=== PATIENT | female | born 1990 | race Caucasian/White ===

== ENCOUNTER 2018-02-03 09:50 | Emergency (ER) | payer OTHER ==
[~2018-02-03] VITALS: Ht 165.1 cm; Wt 82.5 kg
[~2018-02-03 09:50] MED LIST: ESCI10; ESCI20; LANS30PKT
[2018-02-03 10:57] LABS: Source, Urine Clean Catch
[2018-02-03 11:01] LABS: BASOPHILS ABSOLUTE AUTO 0.04 K/mm3 (0.00-0.23); BASOPHILS PERCENT AUTO 0 % (0-2); EOSINOPHILS ABSOLUTE AUTO 0.08 K/mm3 (0.00-0.68); EOSINOPHILS PERCENT AUTO 1 % (0-6); Hematocrit 43.1 % (33.0-51.0); Hemoglobin 14.7 g/dL (11.5-16.0); IMMATURE GRAN ABSOLUTE AUTO 0.06 K/mm3 (0.00-0.10); IMMATURE GRAN PERCENT AUTO 0 % (0-1); LYMPHOCYTES ABSOLUTE AUTO 1.72 K/mm3 (0.84-5.20); LYMPHOCYTES PERCENT AUTO 12 % (21-46); MONOCYTES ABSOLUTE AUTO 1.13 K/mm3 (0.16-1.47); MONOCYTES PERCENT AUTO 8 % (4-13); Mean Corpuscular HGB 28.8 pg (26.0-34.0); Mean Corpuscular HGB Conc 34.1 g/dL (31.5-36.5); Mean Corpuscular Volume 85 fL (80-100); Mean Platelet Volume 10.5 fL (9.1-12.4); NEUTROPHILS ABSOLUTE AUTO 10.84 K/mm3 (1.96-9.15); NEUTROPHILS PERCENT AUTO 78 % (41-73); Platelet Count 180 K/mm3 (150-400); RDW Coefficient Variation 12.5 % (11.7-14.2); RDW Standard Deviation 38.5 fL (35.1-46.3); White Blood Cell Count 13.87 K/mm3 (4.00-11.30)
[2018-02-03 11:02] LABS: Bilirubin, Urine Neg (Neg); Blood, Urine 1+ (Neg); Glucose Qualitative, Urine Neg (Neg); Ketones, Urine Neg (Neg); Leukocyte Esterase, Urine 1+ (Neg); Nitrite, Urine Pos (Neg); Protein, Urine Neg (Neg); Specific Gravity, Urine 1.015 (1.003-1.022); Urobilinogen, Urine NORM (Normal); pH, Urine 6.5 (5.0-8.0)
[2018-02-03 11:07] LABS: Appearance, Urine Hazy (Clear); Color, Urine Yellow (P-Yellow)
[2018-02-03 11:09] LABS: Bacteria Mod /hpf; Mucus Mod (0-Heavy); Red Blood Cells, Urine Not Seen /hpf (0-2); Squamous Epithelial Cells Mod /hpf (Few)
[2018-02-03 11:22] LABS: Alanine Aminotransfer (ALT/SGP 19 U/L (12-78); Albumin, Blood 3.7 g/dL (3.4-5.0); Albumin/Globulin Ratio 0.9 (0.8-1.8); Alk Phos 96 U/L (50-136); Anion Gap 8 mmol/L (6-16); Aspartate Aminotrans (AST/SGOT 8 U/L (12-37); Bilirubin, Total 0.6 mg/dL (0.1-1.0); Blood Urea Nitrogen 16 mg/dL (8-24); Bun/Creatinine Ratio 24.1 (12.0-20.0); CO2, Blood 25 mmol/L (21-32); Calcium, Blood 9.2 mg/dL (8.5-10.1); Chloride, Blood 106 mmol/L (98-108); Creatinine, Blood 0.66 mg/dL (0.40-1.00); Globulin, Blood 4.2 g/dL (2.2-4.0); Glomerular Filtration Rate >60 (60-); Glucose, Blood 86 mg/dL (70-99); Potassium, Blood 3.9 mmol/L (3.5-5.5); Sodium, Blood 139 mmol/L (136-145); Total Protein, Blood 7.9 g/dL (6.4-8.2)
[2018-02-03 11:26] LABS: U Amphetamine Screen DETECTED; U Barbituate Screen Not Detected; U Benzodiazapine Screen Not Detected; U Buprenorphine Screen Not Detected; U Cannabinoids Screen Not Detected; U Cocaine Screen Not Detected; U Methadone Screen Not Detected; U Methamphetamine Screen DETECTED; U Opiates Screen Not Detected; U Oxycodone Screen Not Detected; U Phencyclidine Screen Not Detected
[2018-02-03 11:27] LABS: U Propoxyphene Screen Not Detected
[2018-02-03] MEDS ORDERED: Norco 5-325 Ta1 EACH PO (14:08)
[2018-02-03] MEDS ORDERED: Cleocin HCl300 MG PO (14:08)
[2018-02-03] MEDS ORDERED: Bactrim Ds Tab1 EACH PO (14:08)
== END 2018-02-03 14:18 | disposition home or self-care (01) ==
LOC: ER 09:50
PROVIDERS: Emergency Medicine
DX: L02.211 Cutaneous abscess of abdominal wall (principal); K21.9 Gastro-esophageal reflux disease without esophagitis; F32.9 Major depressive disorder, single episode, unspecified; Z88.0 Allergy status to penicillin; Z88.6 Allergy status to analgesic agent; Z79.899 Other long term (current) drug therapy
CPT/HCPCS: 10060; 36415; 74160; 80053; 81001; 81025; 83690; 85025; 87070; 87075; 87077; 87086; 87147; 87186; 87205; 96374; 96375; 99284; J0780; J1170; J1200; J2405; Q9967

== ENCOUNTER 2018-02-06 12:41 | Emergency (ER) | payer OTHER ==
[~2018-02-06] VITALS: Ht 165.1 cm; Wt 82.5 kg
[~2018-02-06 12:41] MED LIST changes: +Bactrim Ds Tab1 EACH PO; +Cleocin HCl300 MG PO; +Norco 5-325 Ta1 EACH PO
== END 2018-02-06 13:46 | disposition home or self-care (01) ==
LOC: ER 12:41
DX: Z48.817 Encounter for surgical aftercare following surgery on the skin and subcutaneous tissue (principal); Z88.0 Allergy status to penicillin; Z88.6 Allergy status to analgesic agent; F17.210 Nicotine dependence, cigarettes, uncomplicated
CPT/HCPCS: 99282

== ENCOUNTER 2018-02-25 09:27 | Emergency (ER) | payer OTHER ==
[~2018-02-25] VITALS: Ht 167.6 cm; Wt 78.5 kg
[2018-02-25] MEDS ORDERED: HYDR1TAB94 PO (10:37)
[2018-02-25] MEDS ORDERED: IBUP800 PO (10:37)
== END 2018-02-25 11:00 | disposition home or self-care (01) ==
LOC: ER 09:27
DX: S93.402A Sprain of unspecified ligament of left ankle, initial encounter (principal); F17.210 Nicotine dependence, cigarettes, uncomplicated; Z88.0 Allergy status to penicillin; Z88.6 Allergy status to analgesic agent; Z88.8 Allergy status to other drugs, medicaments and biological substances; Z79.899 Other long term (current) drug therapy; Z79.2 Long term (current) use of antibiotics; X50.1XXA Overexertion from prolonged static or awkward postures, initial encounter; Y93.02 Activity, running; Y92.828 Other wilderness area as the place of occurrence of the external cause
CPT/HCPCS: 73610; 99283

== ENCOUNTER 2018-05-09 22:00 | Emergency (ER) | payer OTHER ==
[~2018-05-09] VITALS: Ht 165.1 cm; Wt 83.5 kg
[~2018-05-09 22:00] MED LIST changes: +HYDR1TAB94 PO; +IBUP800 PO
[2018-05-09 23:13] LABS: BASOPHILS ABSOLUTE AUTO 0.08 K/mm3 (0.00-0.23); BASOPHILS PERCENT AUTO 1 % (0-2); EOSINOPHILS ABSOLUTE AUTO 0.26 K/mm3 (0.00-0.68); EOSINOPHILS PERCENT AUTO 3 % (0-6); Hematocrit 42.9 % (33.0-51.0); Hemoglobin 14.5 g/dL (11.5-16.0); IMMATURE GRAN ABSOLUTE AUTO 0.02 K/mm3 (0.00-0.10); IMMATURE GRAN PERCENT AUTO 0 % (0-1); LYMPHOCYTES ABSOLUTE AUTO 3.83 K/mm3 (0.84-5.20); LYMPHOCYTES PERCENT AUTO 39 % (21-46); MONOCYTES ABSOLUTE AUTO 0.81 K/mm3 (0.16-1.47); MONOCYTES PERCENT AUTO 8 % (4-13); Mean Corpuscular HGB 29.7 pg (26.0-34.0); Mean Corpuscular HGB Conc 33.8 g/dL (31.5-36.5); Mean Corpuscular Volume 88 fL (80-100); Mean Platelet Volume 10.5 fL (9.1-12.4); NEUTROPHILS ABSOLUTE AUTO 4.88 K/mm3 (1.96-9.15); NEUTROPHILS PERCENT AUTO 49 % (41-73); Platelet Count 190 K/mm3 (150-400); RDW Coefficient Variation 12.2 % (11.7-14.2); RDW Standard Deviation 39.2 fL (35.1-46.3); Red Blood Cell Count 4.89 M/mm3 (3.80-5.20); White Blood Cell Count 9.88 K/mm3 (4.00-11.30)
[2018-05-09 23:38] LABS: Troponin I <0.015 ng/mL (0.000-0.040)
[2018-05-09 23:39] LABS: Alanine Aminotransfer (ALT/SGP 31 U/L (12-78); Albumin, Blood 3.4 g/dL (3.4-5.0); Alk Phos 107 U/L (50-136); Anion Gap 7 mmol/L (6-16); Aspartate Aminotrans (AST/SGOT 12 U/L (12-37); Bilirubin, Total 0.1 mg/dL (0.1-1.0); Blood Urea Nitrogen 12 mg/dL (8-24); Bun/Creatinine Ratio 19.7 (12.0-20.0); CO2, Blood 26 mmol/L (21-32); Calcium, Blood 8.7 mg/dL (8.5-10.1); Chloride, Blood 110 mmol/L (98-108); Creatinine, Blood 0.61 mg/dL (0.40-1.00); Globulin, Blood 3.4 g/dL (2.2-4.0); Glomerular Filtration Rate >60 (60-); Glucose, Blood 93 mg/dL (70-99); Potassium, Blood 3.5 mmol/L (3.5-5.5); Sodium, Blood 143 mmol/L (136-145); Total Protein, Blood 6.8 g/dL (6.4-8.2)
== END 2018-05-10 01:24 | disposition home or self-care (01) ==
LOC: ER 22:00
PROVIDERS: Physician Assistant
DX: R07.9 Chest pain, unspecified (principal); Z88.0 Allergy status to penicillin; Z88.5 Allergy status to narcotic agent; Z88.8 Allergy status to other drugs, medicaments and biological substances; F17.200 Nicotine dependence, unspecified, uncomplicated
CPT/HCPCS: 36415; 71046; 80053; 81000; 81025; 84484; 85025; 93005; 93010; 96374; 96375; 99283; J1200; J2405

== ENCOUNTER 2018-05-31 19:00 | Emergency (ER) | payer OTHER ==
[~2018-05-31] VITALS: Ht 165.1 cm; Wt 84.8 kg
[2018-05-31] MEDS ORDERED: TRAM50 PO (19:18)
[2018-05-31] MEDS ORDERED: CLIN300 PO (19:18)
== END 2018-05-31 19:41 | disposition home or self-care (01) ==
LOC: ER 19:00
DX: K02.9 Dental caries, unspecified (principal); Z88.0 Allergy status to penicillin; Z88.8 Allergy status to other drugs, medicaments and biological substances; Z88.5 Allergy status to narcotic agent; Z79.2 Long term (current) use of antibiotics; Z79.891 Long term (current) use of opiate analgesic; F17.210 Nicotine dependence, cigarettes, uncomplicated
CPT/HCPCS: 99283

== ENCOUNTER 2018-06-09 13:21 | Emergency (ER) | payer OTHER ==
[~2018-06-09] VITALS: Ht 167.6 cm; Wt 86.2 kg
[~2018-06-09 13:21] MED LIST changes: +CLIN300 PO; +TRAM50 PO
[2018-06-09] MEDS ORDERED: Cyclobenzaprine5 MG PO (14:39)
== END 2018-06-09 15:45 | disposition home or self-care (01) ==
LOC: ER 13:21
DX: S39.012A Strain of muscle, fascia and tendon of lower back, initial encounter (principal); F17.210 Nicotine dependence, cigarettes, uncomplicated; Z88.0 Allergy status to penicillin; Z88.6 Allergy status to analgesic agent; Z88.8 Allergy status to other drugs, medicaments and biological substances; X58.XXXA Exposure to other specified factors, initial encounter
CPT/HCPCS: 72070; 72100

== ENCOUNTER 2019-06-23 20:55 | Emergency (ER) | payer OTHER ==
[~2019-06-23] VITALS: Ht 167.6 cm; Wt 84.8 kg
[~2019-06-23 20:55] MED LIST changes: +Cyclobenzaprine5 MG PO
[2019-06-23 21:50] LABS: BASOPHILS ABSOLUTE AUTO 0.06 K/mm3 (0.00-0.23); BASOPHILS PERCENT AUTO 1 % (0-2); EOSINOPHILS ABSOLUTE AUTO 0.24 K/mm3 (0.00-0.68); EOSINOPHILS PERCENT AUTO 3 % (0-6); Hematocrit 47.3 % (33.0-51.0); Hemoglobin 16.1 g/dL (11.5-16.0); IMMATURE GRAN ABSOLUTE AUTO 0.03 K/mm3 (0.00-0.10); IMMATURE GRAN PERCENT AUTO 0 % (0-1); LYMPHOCYTES ABSOLUTE AUTO 2.81 K/mm3 (0.84-5.20); LYMPHOCYTES PERCENT AUTO 29 % (21-46); MONOCYTES ABSOLUTE AUTO 0.77 K/mm3 (0.16-1.47); MONOCYTES PERCENT AUTO 8 % (4-13); Mean Corpuscular HGB 29.4 pg (26.0-34.0); Mean Corpuscular Volume 86 fL (80-100); Mean Platelet Volume 11.5 fL (9.1-12.4); NEUTROPHILS PERCENT AUTO 59 % (41-73); Platelet Count 173 K/mm3 (150-400); RDW Standard Deviation 40.1 fL (35.1-46.3); Red Blood Cell Count 5.48 M/mm3 (3.80-5.20); White Blood Cell Count 9.61 K/mm3 (4.00-11.30)
[2019-06-23 23:09] LABS: Alanine Aminotransfer (ALT/SGP 23 U/L (12-78); Albumin, Blood 3.5 g/dL (3.4-5.0); Albumin/Globulin Ratio 0.9 (0.8-1.8); Alk Phos 121 U/L (50-136); Anion Gap 7 mmol/L (6-16); Aspartate Aminotrans (AST/SGOT 10 U/L (12-37); Bilirubin, Total 0.2 mg/dL (0.1-1.0); Blood Urea Nitrogen 12 mg/dL (8-24); Bun/Creatinine Ratio 17.4 (12.0-20.0); CO2, Blood 28 mmol/L (21-32); Calcium, Blood 8.8 mg/dL (8.5-10.1); Chloride, Blood 108 mmol/L (98-108); Creatinine, Blood 0.69 mg/dL (0.40-1.00); Glomerular Filtration Rate >60 (60-); Glucose, Blood 87 mg/dL (70-99); Potassium, Blood 3.7 mmol/L (3.5-5.5); Sodium, Blood 143 mmol/L (136-145); Total Protein, Blood 7.5 g/dL (6.4-8.2)
[2019-06-24] MEDS ORDERED: Bactrim Ds Tab1 EACH PO ×2 (02:04→02:05)
[2019-06-24] MEDS ORDERED: IBUP800 PO ×2 (02:04→02:05)
== END 2019-06-24 02:31 | disposition home or self-care (01) ==
LOC: ER 20:55
PROVIDERS: Physician Assistant
DX: H05.011 Cellulitis of right orbit (principal); Z88.0 Allergy status to penicillin; Z88.6 Allergy status to analgesic agent; Z88.8 Allergy status to other drugs, medicaments and biological substances; F17.210 Nicotine dependence, cigarettes, uncomplicated
CPT/HCPCS: 10060; 36415; 70487; 80053; 85025; 96365-59; 99283-25; A9270; Q9967

== ENCOUNTER 2019-08-25 14:05 | Emergency (ER) | payer OTHER ==
[~2019-08-25] VITALS: Ht 167.6 cm; Wt 82.5 kg
[2019-08-25 15:24] LABS: BASOPHILS ABSOLUTE AUTO 0.05 K/mm3 (0.00-0.23); BASOPHILS PERCENT AUTO 1 % (0-2); EOSINOPHILS ABSOLUTE AUTO 0.21 K/mm3 (0.00-0.68); EOSINOPHILS PERCENT AUTO 2 % (0-6); Hematocrit 42.4 % (33.0-51.0); Hemoglobin 14.6 g/dL (11.5-16.0); IMMATURE GRAN ABSOLUTE AUTO 0.02 K/mm3 (0.00-0.10); IMMATURE GRAN PERCENT AUTO 0 % (0-1); LYMPHOCYTES ABSOLUTE AUTO 2.19 K/mm3 (0.84-5.20); LYMPHOCYTES PERCENT AUTO 23 % (21-46); MONOCYTES ABSOLUTE AUTO 0.82 K/mm3 (0.16-1.47); MONOCYTES PERCENT AUTO 9 % (4-13); Mean Corpuscular HGB 29.4 pg (26.0-34.0); Mean Corpuscular HGB Conc 34.4 g/dL (31.5-36.5); Mean Corpuscular Volume 85 fL (80-100); Mean Platelet Volume 9.9 fL (9.1-12.4); NEUTROPHILS ABSOLUTE AUTO 6.22 K/mm3 (1.96-9.15); NEUTROPHILS PERCENT AUTO 66 % (41-73); Platelet Count 227 K/mm3 (150-400); RDW Coefficient Variation 12.4 % (11.7-14.2); RDW Standard Deviation 38.4 fL (35.1-46.3); Red Blood Cell Count 4.97 M/mm3 (3.80-5.20); White Blood Cell Count 9.51 K/mm3 (4.00-11.30)
[2019-08-25 16:25] LABS: Alanine Aminotransfer (ALT/SGP 37 U/L (12-78); Albumin, Blood 3.3 g/dL (3.4-5.0); Albumin/Globulin Ratio 0.9 (0.8-1.8); Alk Phos 124 U/L (50-136); Anion Gap 5 mmol/L (6-16); Aspartate Aminotrans (AST/SGOT 23 U/L (12-37); Bilirubin, Total 0.1 mg/dL (0.1-1.0); Blood Urea Nitrogen 15 mg/dL (8-24); Bun/Creatinine Ratio 22.2 (12.0-20.0); CO2, Blood 23 mmol/L (21-32); Chloride, Blood 111 mmol/L (98-108); Creatinine, Blood 0.68 mg/dL (0.40-1.00); Globulin, Blood 3.8 g/dL (2.2-4.0); Glomerular Filtration Rate >60 (60-); Glucose, Blood 107 mg/dL (70-99); Potassium, Blood 4.1 mmol/L (3.5-5.5); Sodium, Blood 139 mmol/L (136-145); Total Protein, Blood 7.1 g/dL (6.4-8.2)
[2019-08-25] MEDS ORDERED: CLIN300 PO (16:48)
[2019-08-25] MEDS ORDERED: Roxicodone5 MG PO (16:48)
[2019-08-25] MEDS ORDERED: Bactrim Ds Tab1 EACH PO (16:51)
== END 2019-08-25 17:31 | disposition home or self-care (01) ==
LOC: ER 14:05
PROVIDERS: Physician Assistant
DX: L03.213 Periorbital cellulitis (principal); H44.002 Unspecified purulent endophthalmitis, left eye; F17.210 Nicotine dependence, cigarettes, uncomplicated; Z88.0 Allergy status to penicillin; Z88.8 Allergy status to other drugs, medicaments and biological substances; Z88.5 Allergy status to narcotic agent
CPT/HCPCS: 67700; 70487; 80053; 85025; 96365-59; 99284-25; A9270-GY; J3010; Q9967

== ENCOUNTER 2019-11-18 09:52 | Emergency (ER) | payer OTHER ==
[~2019-11-18] VITALS: Ht 167.6 cm; Wt 82.5 kg
[~2019-11-18 09:52] MED LIST changes: +Roxicodone5 MG PO
[2019-11-18] MEDS ORDERED: Ultram50 MG PO (12:00)
[2019-11-18] MEDS ORDERED: CLOB.05TO TOP (12:00)
[2019-11-18] MEDS ORDERED: Percocet 5-3251 EACH PO (13:46)
[2019-11-18] MEDS ORDERED: Roxicodone5 MG PO (15:12)
[2019-11-18] MEDS ORDERED: HYDCOR2.5C TOP (15:21)
[2019-11-18] MEDS ORDERED: Triamcinolone A15 G3 TOP (15:21)
== END 2019-11-18 13:40 | disposition home or self-care (01) ==
LOC: ER 09:52
DX: L23.7 Allergic contact dermatitis due to plants, except food (principal); F17.200 Nicotine dependence, unspecified, uncomplicated; Z88.0 Allergy status to penicillin; Z88.6 Allergy status to analgesic agent; Z88.8 Allergy status to other drugs, medicaments and biological substances
CPT/HCPCS: 96361; 96372-59; 96374; 99283-25; J1200; J3301; J7030

== ENCOUNTER 2019-11-18 14:41 | Emergency (ER) | payer OTHER ==
[~2019-11-18] VITALS: Ht 167.6 cm; Wt 82.5 kg
[~2019-11-18 14:41] MED LIST changes: +CLOB.05TO TOP; +Percocet 5-3251 EACH PO; +Ultram50 MG PO
[2019-11-18] MEDS ORDERED: Roxicodone5 MG PO (15:12)
[2019-11-18] MEDS ORDERED: Triamcinolone A15 G3 TOP (15:21)
[2019-11-18] MEDS ORDERED: HYDCOR2.5C TOP (15:21)
== END 2019-11-18 15:32 | disposition home or self-care (01) ==
LOC: ER 14:41
DX: L23.7 Allergic contact dermatitis due to plants, except food (principal); Z88.0 Allergy status to penicillin; Z88.5 Allergy status to narcotic agent; Z88.8 Allergy status to other drugs, medicaments and biological substances

== ENCOUNTER 2021-07-17 06:34 | Emergency (ER) | payer OTHER ==
[~2021-07-17 06:34] MED LIST changes: +HYDCOR2.5C TOP; +Triamcinolone A15 G3 TOP
== END 2021-07-17 07:29 | disposition left against medical advice (07) ==
LOC: ER 06:34
DX: Z53.21 Procedure and treatment not carried out due to patient leaving prior to being seen by health care provider (principal)

== ENCOUNTER 2022-01-31 21:23 | Emergency (ER) | payer OTHER ==
[~2022-01-31] VITALS: Ht 165.1 cm; Wt 93.0 kg
[2022-01-31 21:51] LABS: BASOPHILS ABSOLUTE AUTO 0.05 K/mm3 (0.00-0.23); BASOPHILS PERCENT AUTO 1 % (0-2); EOSINOPHILS ABSOLUTE AUTO 0.19 K/mm3 (0.00-0.68); EOSINOPHILS PERCENT AUTO 3 % (0-6); Hematocrit 44.6 % (33.0-51.0); Hemoglobin 15.4 g/dL (11.5-16.0); IMMATURE GRAN ABSOLUTE AUTO 0.02 K/mm3 (0.00-0.10); IMMATURE GRAN PERCENT AUTO 0 % (0-1); LYMPHOCYTES ABSOLUTE AUTO 2.29 K/mm3 (0.84-5.20); LYMPHOCYTES PERCENT AUTO 34 % (21-46); MONOCYTES ABSOLUTE AUTO 0.77 K/mm3 (0.16-1.47); MONOCYTES PERCENT AUTO 11 % (4-13); Mean Corpuscular HGB 28.1 pg (26.0-34.0); Mean Corpuscular HGB Conc 34.5 g/dL (31.5-36.5); Mean Corpuscular Volume 81 fL (80-100); Mean Platelet Volume 10.8 fL (9.1-12.4); NEUTROPHILS ABSOLUTE AUTO 3.43 K/mm3 (1.96-9.15); NEUTROPHILS PERCENT AUTO 51 % (41-73); Platelet Count 223 K/mm3 (150-400); RDW Coefficient Variation 12.8 % (11.7-14.2); RDW Standard Deviation 38.1 fL (35.1-46.3); Red Blood Cell Count 5.49 M/mm3 (3.80-5.20); White Blood Cell Count 6.75 K/mm3 (4.00-11.30)
[2022-01-31 22:08] LABS: Alanine Aminotransfer (ALT/SGP 95 U/L (12-78); Albumin, Blood 3.3 g/dL (3.4-5.0); Albumin/Globulin Ratio 0.8 (0.8-1.8); Alk Phos 136 U/L (50-136); Anion Gap 7 mmol/L (6-16); Aspartate Aminotrans (AST/SGOT 56 U/L (12-37); Bilirubin, Total 0.3 mg/dL (0.1-1.0); Blood Urea Nitrogen 12 mg/dL (8-24); Bun/Creatinine Ratio 19.3 (12.0-20.0); CO2, Blood 25 mmol/L (21-32); Chloride, Blood 108 mmol/L (98-108); Creatinine, Blood 0.62 mg/dL (0.40-1.00); Globulin, Blood 4.2 g/dL (2.2-4.0); Glomerular Filtration Rate >60 (60-); Glucose, Blood 100 mg/dL (70-99); Potassium, Blood 4.2 mmol/L (3.5-5.5); Sodium, Blood 140 mmol/L (136-145); Total Protein, Blood 7.5 g/dL (6.4-8.2)
== END 2022-01-31 22:59 | disposition home or self-care (01) ==
LOC: ER 21:23
PROVIDERS: Student in an Organized Health Care Education/Training Program
DX: U07.1 COVID-19 (principal); F17.200 Nicotine dependence, unspecified, uncomplicated; Z88.0 Allergy status to penicillin; Z88.6 Allergy status to analgesic agent; Z88.8 Allergy status to other drugs, medicaments and biological substances; Z88.5 Allergy status to narcotic agent; Z79.899 Other long term (current) drug therapy
CPT/HCPCS: 36415; 71045; 80053; 84484; 85025; 93005; 93010; 99285-25

== ENCOUNTER 2022-08-29 00:50 | Emergency (ER) | payer OTHER ==
[~2022-08-29] VITALS: Ht 167.6 cm; Wt 95.2 kg
== END 2022-08-29 05:41 | disposition home or self-care (01) ==
LOC: ER 00:50
DX: S27.818A Other injury of esophagus (thoracic part), initial encounter (principal); F17.200 Nicotine dependence, unspecified, uncomplicated; Z88.0 Allergy status to penicillin; Z88.6 Allergy status to analgesic agent; Z88.5 Allergy status to narcotic agent; Z88.8 Allergy status to other drugs, medicaments and biological substances; X58.XXXA Exposure to other specified factors, initial encounter
CPT/HCPCS: 70360; 70490; 96374; 99284-25; J1200

== ENCOUNTER 2023-01-25 22:08 | Emergency (ER) | payer OTHER ==
[~2023-01-25] VITALS: Ht 170.2 cm; Wt 84.8 kg
[2023-01-25 22:40] LABS: Prothrombin Time Results 10.5 Sec (9.7-11.5)
[2023-01-25 23:38] LABS: Ethanol (Alcohol), Blood, Med <3 mg/dL
[2023-01-25 23:43] LABS: Alanine Aminotransfer (ALT/SGP 24 U/L (12-78); Albumin/Globulin Ratio 0.9 (0.8-1.8); Alk Phos 102 U/L (50-136); Anion Gap 7 mmol/L (6-16); Aspartate Aminotrans (AST/SGOT 24 U/L (12-37); Bilirubin, Total 0.2 mg/dL (0.1-1.0); Blood Urea Nitrogen 17 mg/dL (8-24); Bun/Creatinine Ratio 27.7 (12.0-20.0); CO2, Blood 19 mmol/L (21-32); Calcium, Blood 8.2 mg/dL (8.5-10.1); Chloride, Blood 113 mmol/L (98-108); Creatinine, Blood 0.61 mg/dL (0.40-1.00); Globulin, Blood 3.5 g/dL (2.2-4.0); Glomerular Filtration Rate 123 (60-); Glucose, Blood 85 mg/dL (70-99); Potassium, Blood 3.6 mmol/L (3.5-5.5); Sodium, Blood 139 mmol/L (136-145); Total Protein, Blood 6.5 g/dL (6.4-8.2)
[2023-01-26 00:39] LABS: Hematocrit 41.5 % (33.0-51.0); Hemoglobin 14.8 g/dL (11.5-16.0); Mean Corpuscular HGB 29.4 pg (26.0-34.0); Mean Corpuscular HGB Conc 35.7 g/dL (31.5-36.5); Mean Corpuscular Volume 83 fL (80-100); Mean Platelet Volume 11.2 fL (9.1-12.4); Platelet Count 206 K/mm3 (150-400); RDW Standard Deviation 38.9 fL (35.1-46.3); Red Blood Cell Count 5.03 M/mm3 (3.80-5.20); White Blood Cell Count 14.35 K/mm3 (4.00-11.30)
== END 2023-01-26 02:13 | disposition home or self-care (01) ==
LOC: ER 22:08
PROVIDERS: Student in an Organized Health Care Education/Training Program
DX: S00.03XA Contusion of scalp, initial encounter (principal); S90.31XA Contusion of right foot, initial encounter; V48.6XXA Car passenger injured in noncollision transport accident in traffic accident, initial encounter; Z88.0 Allergy status to penicillin; Z88.5 Allergy status to narcotic agent; Z88.8 Allergy status to other drugs, medicaments and biological substances; Z88.6 Allergy status to analgesic agent; Z79.899 Other long term (current) drug therapy; F17.200 Nicotine dependence, unspecified, uncomplicated
CPT/HCPCS: 29125; 36415; 70450; 71260; 72125; 73630; 74177; 80053; 83690; 84703; 85025; 85027; 85610; 96374-59; 96375-59; 99285-25; A9270; G0480; J2270; J2405; Q9967

== ENCOUNTER 2024-06-21 19:38 | Emergency (ER) | payer OTHER ==
[~2024-06-21] VITALS: Ht 172.7 cm; Wt 108.0 kg
[2024-06-21] MEDS ORDERED: NS 1,000 ML IV SCH (20:25)
[2024-06-21] MEDS ORDERED: Ketorolac Tromethamine 30mg Vial IV ONE (20:25)
[2024-06-21] MEDS ORDERED: HYDROmorphone HCl/Pf 1MG SYR IV ONE (20:25)
[2024-06-21 20:36] LABS: BASOPHILS ABSOLUTE AUTO 0.04 K/mm3 (0.00-0.23); BASOPHILS PERCENT AUTO 1 % (0-2); EOSINOPHILS ABSOLUTE AUTO 0.03 K/mm3 (0.00-0.68); EOSINOPHILS PERCENT AUTO 0 % (0-6); Hematocrit 47.2 % (33.0-51.0); Hemoglobin 16.9 g/dL (11.5-16.0); IMMATURE GRAN ABSOLUTE AUTO 0.03 K/mm3 (0.00-0.10); IMMATURE GRAN PERCENT AUTO 0 % (0-1); LYMPHOCYTES PERCENT AUTO 18 % (21-46); MONOCYTES ABSOLUTE AUTO 0.64 K/mm3 (0.16-1.47); MONOCYTES PERCENT AUTO 9 % (4-13); Mean Corpuscular HGB 30.3 pg (26.0-34.0); Mean Corpuscular HGB Conc 35.8 g/dL (31.5-36.5); Mean Corpuscular Volume 85 fL (80-100); Mean Platelet Volume 10.8 fL (9.1-12.4); NEUTROPHILS ABSOLUTE AUTO 5.17 K/mm3 (1.96-9.15); NEUTROPHILS PERCENT AUTO 72 % (41-73); Platelet Count 164 K/mm3 (150-400); RDW Coefficient Variation 12.9 % (11.7-14.2); RDW Standard Deviation 39.9 fL (35.1-46.3); Red Blood Cell Count 5.57 M/mm3 (3.80-5.20); White Blood Cell Count 7.21 K/mm3 (4.00-11.30)
[2024-06-21 20:55] LABS: Source, Urine Clean Catch
[2024-06-21 20:58] LABS: Albumin, Blood 3.1 g/dL (3.4-5.0); Albumin/Globulin Ratio 0.8 (0.8-1.8); Bilirubin, Direct 0.2 mg/dL (0.0-0.3); Bilirubin, Total 0.6 mg/dL (0.1-1.0); Bun/Creatinine Ratio 14.2 (12.0-20.0); Calcium, Blood 8.3 mg/dL (8.5-10.1); Creatinine, Blood 0.77 mg/dL (0.40-1.00); Globulin, Blood 3.7 g/dL (2.2-4.0); Magnesium, Blood 1.8 mg/dL (1.6-2.4); Potassium, Blood 4.4 mmol/L (3.5-5.5); Total Protein, Blood 6.8 g/dL (6.4-8.2)
[2024-06-21 21:00] LABS: Appearance, Urine Hazy (Clear); Bilirubin, Urine Neg (Neg); Blood, Urine 2+ (Neg); Color, Urine Yellow (P-Yellow); Glucose Qualitative, Urine Neg (Neg); Ketones, Urine Neg (Neg); Leukocyte Esterase, Urine 2+ (Neg); Nitrite, Urine Pos (Neg); Protein, Urine 2+ (Neg); Specific Gravity, Urine 1.015 (1.003-1.022); Urobilinogen, Urine 1+ (Normal); pH, Urine 6.5 (5.0-8.0)
[2024-06-21 21:07] LABS: Bacteria Many /hpf; Squamous Epithelial Cells Few /hpf (Few)
[2024-06-21 23:28] VITALS: BP 149/99
[2024-06-21] MEDS ORDERED: Trimethoprim/Sulfamethoxazole DS Tab PO ONE (23:35)
[2024-06-21] MEDS ORDERED: ONDA4ODT MM (23:41)
[2024-06-21] MEDS ORDERED: PHENA200 PO (23:41)
[2024-06-21] MEDS ORDERED: SULTRIDS PO (23:41)
== END 2024-06-22 00:57 | disposition home or self-care (01) ==
LOC: ER 19:38
PROVIDERS: Student in an Organized Health Care Education/Training Program
DX: T83.32XA Displacement of intrauterine contraceptive device, initial encounter (principal); N30.00 Acute cystitis without hematuria; N83.202 Unspecified ovarian cyst, left side; Z88.0 Allergy status to penicillin; Z88.6 Allergy status to analgesic agent; Z88.5 Allergy status to narcotic agent; Z79.899 Other long term (current) drug therapy; F17.200 Nicotine dependence, unspecified, uncomplicated
CPT/HCPCS: 51701; 74177; 80053; 81001; 82248; 83690; 83735; 84703; 85025; 87077; 87086; 87186; 93005; 93010; 96361; 96374-59; 96375; 99285-25; A9270; J1170; J1885; J7030; Q9967

== ENCOUNTER 2025-01-17 08:11 | Inpatient (IN) | payer OTHER ==
[~2025-01-17] VITALS: Ht 170.2 cm; Wt 123.0 kg
[~2025-01-17 08:11] MED LIST changes: +ONDA4ODT MM; +PHENA200 PO; +SULTRIDS PO
[2025-01-17 08:55] LABS: BASOPHILS ABSOLUTE AUTO 0.08 K/mm3 (0.00-0.23); BASOPHILS PERCENT AUTO 1 % (0-2); EOSINOPHILS PERCENT AUTO 2 % (0-6); Hematocrit 50.7 % (33.0-51.0); Hemoglobin 17.9 g/dL (11.5-16.0); IMMATURE GRAN ABSOLUTE AUTO 0.03 K/mm3 (0.00-0.10); IMMATURE GRAN PERCENT AUTO 0 % (0-1); LYMPHOCYTES ABSOLUTE AUTO 3.54 K/mm3 (0.84-5.20); LYMPHOCYTES PERCENT AUTO 38 % (21-46); MONOCYTES ABSOLUTE AUTO 0.69 K/mm3 (0.16-1.47); MONOCYTES PERCENT AUTO 7 % (4-13); Mean Corpuscular HGB 30.3 pg (26.0-34.0); Mean Corpuscular HGB Conc 35.3 g/dL (31.5-36.5); Mean Corpuscular Volume 86 fL (80-100); Mean Platelet Volume 10.4 fL (9.1-12.4); NEUTROPHILS ABSOLUTE AUTO 4.85 K/mm3 (1.96-9.15); NEUTROPHILS PERCENT AUTO 52 % (41-73); Platelet Count 203 K/mm3 (150-400); RDW Coefficient Variation 13.2 % (11.7-14.2); RDW Standard Deviation 41.2 fL (35.1-46.3); Red Blood Cell Count 5.91 M/mm3 (3.80-5.20); White Blood Cell Count 9.39 K/mm3 (4.00-11.30)
[2025-01-17 09:22] LABS: Albumin, Blood 3.2 g/dL (3.4-5.0); Albumin/Globulin Ratio 0.8 (0.8-1.8); Bun/Creatinine Ratio 16.9 (12.0-20.0); Calcium, Blood 9.4 mg/dL (8.5-10.1); Creatinine, Blood 0.89 mg/dL (0.40-1.00); Globulin, Blood 4.2 g/dL (2.2-4.0); Potassium, Blood 3.9 mmol/L (3.5-5.5); Total Protein, Blood 7.4 g/dL (6.4-8.2)
[2025-01-17 10:08] LABS: Influenza A, PCR NEGATIVE (NEGATIVE); Influenza B, PCR NEGATIVE (NEGATIVE); Resp Syncytial Virus, PCR NEGATIVE (NEGATIVE); SARS-Cov-2 (COVID-19) PCR, MMC NEGATIVE (NEGATIVE)
[2025-01-17] MEDS ORDERED: Ketorolac Tromethamine 15mg Vial IV ONE (10:15)
[2025-01-17 11:57] LABS: U Amphetamine Screen DETECTED; U Barbituate Screen Not Detected; U Benzodiazapine Screen Not Detected; U Buprenorphine Screen Not Detected; U Cannabinoids Screen Not Detected; U Cocaine Screen Not Detected; U Methadone Screen Not Detected; U Methamphetamine Screen DETECTED; U Opiates Screen Not Detected; U Oxycodone Screen Not Detected; U Phencyclidine Screen Not Detected
[2025-01-17] MEDS ORDERED: Polyethylene Glycol 3350 17 gm PO PRN (13:10)
[2025-01-17] MEDS ORDERED: Acetaminophen 325 MG TABLET PO PRN (13:15)
[2025-01-17] MEDS ORDERED: FLU VACC TS2024-25(6MOS UP)/PF 45 MCG/0.5 ML SYRINGE IM SCH (13:15)
[2025-01-17] MEDS ORDERED: Ondansetron 4 MG SoluTab MM PRN (13:15)
[2025-01-17] MEDS ORDERED: Ketorolac Tromethamine 30mg Vial IV PRN (13:20)
[2025-01-17] MEDS ORDERED: Furosemide 10 MG / ML 2ML Vial IV SCH (14:00)
[2025-01-17 14:47] LABS: CHOL/HDL RATIO 4.5; Cholesterol 141 mg/dL (50-200); HDL Cholesterol 31 mg/dL (>39); LDL/HDL RATIO 3.1; Low Density Lipoprotein Chol 95 mg/dL (0-110); Triglycerides 76 mg/dL (30-140); Very Low Density Lipoprot Chol 15 mg/dL (6-28)
[2025-01-17] MEDS ORDERED: HydrALAZINE HCl 20 MG / ML 1ML Vial IV PRN (15:00)
[2025-01-17 15:15] VITALS: BP 154/130
[2025-01-17 15:59] VITALS: BP 142/104
[2025-01-17 17:57] LABS: Anti-Xa UFH, PHA Monitoring <0.10 IU/mL; Prothrombin Time Results 11.7 Sec (9.7-11.5)
[2025-01-17] MEDS ORDERED: Heparin Sodium 5000 Units/ML 1ML MDV IV ONE (18:00)
[2025-01-17] MEDS ORDERED: Heparin Sodium,Porcine/0.5 NS 500 ML IV SCH (18:00)
[2025-01-17] MEDS ORDERED: Dose Adjust by Pharmacy XX STA (18:01)
--- NOTE | 2025-01-17 18:26 | NUR ---
SHIFT SUMMARY: PT A&O X4. PT VERY ANXIOUS AND FEARFUL SINCE ARRIVAL. PT STATES SHE IS SCARED TO FALL ASLEEP IN FEAR SHE WONT WAKE UP. PT HYPERTENSIVE IN ER. SPOKE WITH DR. RUSSELL WHO PLACED ORDERS FOR PRN HYDRALAZINE. PRN HTN MEDICATION PROVIDED. ECHO ARRIVED SHORTLY AFTER ADMISSION. SENIOR SUPPORT ANALYST REPORTED PT HAVING RV STRAIN AND SEVERE PULMONARY HYPERTENSION. REPORTED TO DR. RUSSELL WHO PLACED ORDERS FOR STATE CT PE. PE NEGATIVE. SPOKE WITH CONG BOWDEN IN IR STATING TO PLACE VERBAL ORDER PER DR. Ortiz FOR STAT BILATERAL EXTREMITY VENOUS DUPLEX. ORDER PLACED AND TECH TO COMPLETE TONIGHT. TELE IN PLACE RUNNING SINUS RHYHTM IN 70'S. PT C/O PAIN "ALL OVER." IV TORADOL PROVIDED WITH NO RELIEF. BOYFRIEND AT BEDSIDE. CALL LIGHT IN REACH. BED IN LOWEST POSITION.
[2025-01-17 19:30] VITALS: BP 137/92
[2025-01-17] MEDS ORDERED: Melatonin 5 MG Tablet PO PRN (22:00)
--- NOTE | 2025-01-18 03:33 | NUR ---
SHIFT SUMMARY PT IS A/O X4, ANXIOUS AND TEARFUL T/O THIS SHIFT. BOYFRIEND ESME BY THE BEDSIDE. TELE: SR @86,VSS. PT IS INDEPENDENT W/I THE HOSPITAL ROOM. PT REPORTS PAIN IN LE'S AND INSOMNIA. NEW ORDER FOR MELATONIN RECEIVED BY THE BREAK NURSE TRACEY REY. ADMINISTERED ORDERED. NO ACUTE EVENTS DURING THIS SHIFT. BED AT THE LOWEST POSITION, CALL LIGHT W/I REACH. PER CHARGE NURSE AND THIS MEDICAL TERRITORY MANAGER'S REQUEST, PT'S DOOR AND CURTAIN WAS LEFT OPEN DURING NIGHT HRS, D/T PT AND BOYFRIEND ARGUING AND YELLING IN THE HOSPITAL ROOM AT . PT WAS CONSIDERING TO LEAVE AMA, IF THE BOYFRIEND WAS NOT ABLE TO SPEND THE NIGHT BY THE BEDSIDE.
[2025-01-18 04:14] VITALS: BP 133/98
[2025-01-18 05:50] LABS: BASOPHILS ABSOLUTE AUTO 0.08 K/mm3 (0.00-0.23); BASOPHILS PERCENT AUTO 1 % (0-2); EOSINOPHILS ABSOLUTE AUTO 0.15 K/mm3 (0.00-0.68); EOSINOPHILS PERCENT AUTO 2 % (0-6); Hematocrit 53.3 % (33.0-51.0); Hemoglobin 18.1 g/dL (11.5-16.0); IMMATURE GRAN ABSOLUTE AUTO 0.01 K/mm3 (0.00-0.10); IMMATURE GRAN PERCENT AUTO 0 % (0-1); LYMPHOCYTES ABSOLUTE AUTO 3.09 K/mm3 (0.84-5.20); LYMPHOCYTES PERCENT AUTO 39 % (21-46); MONOCYTES ABSOLUTE AUTO 0.67 K/mm3 (0.16-1.47); MONOCYTES PERCENT AUTO 8 % (4-13); Mean Corpuscular HGB 30.1 pg (26.0-34.0); Mean Corpuscular Volume 89 fL (80-100); Mean Platelet Volume 11.3 fL (9.1-12.4); NEUTROPHILS ABSOLUTE AUTO 3.93 K/mm3 (1.96-9.15); NEUTROPHILS PERCENT AUTO 50 % (41-73); Platelet Count 183 K/mm3 (150-400); RDW Coefficient Variation 13.7 % (11.7-14.2); Red Blood Cell Count 6.01 M/mm3 (3.80-5.20); White Blood Cell Count 7.93 K/mm3 (4.00-11.30)
[2025-01-18 05:55] VITALS: BP 150/113
[2025-01-18 06:13] LABS: Albumin, Blood 3.1 g/dL (3.4-5.0); Albumin/Globulin Ratio 0.8 (0.8-1.8); Bilirubin, Total 1.6 mg/dL (0.1-1.0); Bun/Creatinine Ratio 19.4 (12.0-20.0); Calcium, Blood 9.3 mg/dL (8.5-10.1); Creatinine, Blood 0.88 mg/dL (0.40-1.00); Globulin, Blood 4.1 g/dL (2.2-4.0); Potassium, Blood 4.2 mmol/L (3.5-5.5); Total Protein, Blood 7.2 g/dL (6.4-8.2)
--- NOTE | 2025-01-18 06:38 | NUR ---
APPROXIMATELY 0615 PT'S BOYFRIEND REPORTED TO THIS NURSE THAT THE PT IS HAVING AND HAD A SEIZURE. VSS, O2 @97% ON RA. PT C/O CHEST PAIN. EKG WAS OBTAINED. CHARGE NURSE KHALIF COMPLETED THE NEURO CHECK. DURING ASSESSMENT, PT'S BP BECAME MORE ELEVATED. PT IS A/O X4. NO SIGNS OF ACTIVE OR POST SEIZURE ACTIVITY NOTED. PT'S BOYFRIEND STATED"WE NEED TO GO TO ANOTHER HOSPITAL WHERE THEY KNOW WHAT THEY ARE DOING", AND " WHERE IS THE DR? HE SHOULD HAVE BEEN HERE 30-MINUTES AGO". PT AND FAMILY EDUCATION GIVEN REGARDING NURSING ASSESSMENT. , ON-ALL HOSPITALIST WAS CONTACTED BY THIS RN CLINICAL QUALITY. PER CONVERSTATION, PT WILL BE ASSESSED WITHIN 30 MINUTES. PT IS POINTING ON RUQ FOR DISCOMFORT. PT'S BOYFRIEND DENIES THAT THE PT HAS ANXIETY. KNOWLEDGE ARCHITECT WAS NOTIFIED AND BY THE BEDSIDE. PT'S BOYFRIEND STATED:"i AM AN [employer] VET AND A COMBAT MEDIC" AND HE CONTINUES TO CALL 'S CRISIS LINE AND KEEPS HANGING UP THE PHONE. HYDRAZALINE IV PRN WAS ADMINISTERED. WILL REPORT TO INCOMING RN.
--- NOTE | 2025-01-18 07:30 | NUR ---
This television script writer was called to room to assess pt after S.O. reported pt had a seizure. He states she was bluish. He says he has seen seizures before. Patient, per TECH ED TEACHER, was talking about hurting immediately after seizure. Pt does have high BP, systolic 180's, diastolic 120. O2 sat is good 96% on roomair. Pt is very soft spoken.She states she has mid to right upper chest pain. Pt keeps raising her chest up in a small "crunch" like movement. States pain is crampy, and sharp. EKG was done. Pt seems lethargic. She follows commands but is weak with granite countertop installer and leg push pulls. Pupils were 3mm. Eyes were looking down and then looking up when checked x2 Facial expression is flat. Dr. Robertson was notified of episode, EKG results by Ty REY. Report to oncdevika
[2025-01-18 07:47] VITALS: BP 154/92
[2025-01-18] MEDS ORDERED: Furosemide 10 MG/ML 4ML Vial IV SCH (09:00)
[2025-01-18] MEDS ORDERED: Empagliflozin 10 MG TAB PO SCH (09:00)
[2025-01-18] MEDS ORDERED: Enoxaparin 40 MG/0.4 ML SYR SC SCH (09:00)
[2025-01-18] MEDS ORDERED: Ketorolac Tromethamine 30mg Vial IV PRN (12:30)
[2025-01-18 15:23] VITALS: BP 186/122
[2025-01-18 15:57] VITALS: BP 149/90
--- NOTE | 2025-01-18 17:00 | NUR ---
SHIFT SUMMARY PT AOX4, COOPERATIVE, ABLE TO MAKE NEEDS KNOWN. BOYFRIEND IS BEDSIDE. STAFF MENTIONS BOYFRIEND CAN BE AGGRESSIVE AT TIMES, THIS RN HAS HAD NO COMPLAINTS OF HIM YET. BEGINNING OF SHIFT, BOYFRIEND WAS SPEAKING FOR PT, THEN IN EVENING, PT WAS ANSWERING QUESTIONS HERSELF. PT DID HAVE EPISODE OF HYPERTENSION, MEDICATE PER EMAR, AND RECHECKED BP, WHICH LOWERED. COMPLAINTS OF RIGHT RIB PAIN WHICH WENT AWAY AFTER ASSESSING THE AREA. INFORMED PT TO ADDRESS THIS RN IF THE PAIN RETURNS. AMBULATES TO BATHROOM IND WITH HELP OF BOYFRIEND. BED IN LOWEST POSITION, CALL LIGHT WITHIN REACH.
[2025-01-18 20:01] VITALS: BP 137/87
[2025-01-19 01:08] VITALS: BP 161/95
[2025-01-19 03:13] VITALS: BP 153/101
--- NOTE | 2025-01-19 05:52 | NUR ---
SHIFT SUMMARY PT A&Ox4. PT TEARFUL AND ANXIOUS AT TIMES DURING THE SHIFT. PT C/O PAIN AND MEDICATED PER EMAR WITH GOOD EFFECT. PT DID C/O CHEST PAIN THAT SHE STATED FELT LIKE SHE WAS "DROWNING" AND STATED SHE HASN'T BEEN ABLE TO URINATE. MEDICATED FOR PAIN AND ENCOURAGED TO SIT UP IN BED AND NOT LAY FLAT. PT ALSO BLADDER SCANNED AND SHOWED 134ml. PT UP TO SHOWER AT START OF SHIFT TO HELP RELIEVE BACK PAIN. NO EVENTS ON TELE. BP REMAINS ELEVATED BUT DID NOT MEET CRITERIA FOR HYDRALAZINE. SIGNIFICANT OTHER REMAINED AT BEDSIDE T/O NIGHT. BED IN LOWEST POSITION AND CALL LIGHT IN REACH.
[2025-01-19 06:14] LABS: BASOPHILS ABSOLUTE AUTO 0.08 K/mm3 (0.00-0.23); BASOPHILS PERCENT AUTO 1 % (0-2); EOSINOPHILS PERCENT AUTO 2 % (0-6); Hematocrit 53.1 % (33.0-51.0); Hemoglobin 18.3 g/dL (11.5-16.0); IMMATURE GRAN ABSOLUTE AUTO 0.03 K/mm3 (0.00-0.10); IMMATURE GRAN PERCENT AUTO 0 % (0-1); LYMPHOCYTES ABSOLUTE AUTO 2.61 K/mm3 (0.84-5.20); LYMPHOCYTES PERCENT AUTO 31 % (21-46); MONOCYTES ABSOLUTE AUTO 0.79 K/mm3 (0.16-1.47); MONOCYTES PERCENT AUTO 9 % (4-13); Mean Corpuscular HGB 29.9 pg (26.0-34.0); Mean Corpuscular HGB Conc 34.5 g/dL (31.5-36.5); Mean Corpuscular Volume 87 fL (80-100); Mean Platelet Volume 10.6 fL (9.1-12.4); NEUTROPHILS ABSOLUTE AUTO 4.76 K/mm3 (1.96-9.15); NEUTROPHILS PERCENT AUTO 56 % (41-73); Platelet Count 209 K/mm3 (150-400); RDW Coefficient Variation 13.6 % (11.7-14.2); RDW Standard Deviation 43.3 fL (35.1-46.3); Red Blood Cell Count 6.12 M/mm3 (3.80-5.20); White Blood Cell Count 8.47 K/mm3 (4.00-11.30)
[2025-01-19 06:56] LABS: Albumin/Globulin Ratio 0.8 (0.8-1.8); Bilirubin, Total 0.7 mg/dL (0.1-1.0); Bun/Creatinine Ratio 29.6 (12.0-20.0); Calcium, Blood 9.1 mg/dL (8.5-10.1); Creatinine, Blood 0.88 mg/dL (0.40-1.00); Potassium, Blood 3.8 mmol/L (3.5-5.5)
[2025-01-19 07:28] VITALS: BP 181/118
--- NOTE | 2025-01-19 11:10 | NUR ---
THIS RN NOTIFIED OF PTS' ELEVATED BP. PT ASYMPTOMATIC AND MEDICATED PER EMAR. NO NEW ORDERS AT THIS TIME.
[2025-01-19] MEDS ORDERED: Losartan Potassium 25 MG Tab PO SCH (12:00)
[2025-01-19 12:37] VITALS: BP 155/109
[2025-01-19] MEDS ORDERED: ACET325 PO ×2 (15:51)
[2025-01-19] MEDS ORDERED: LOSA25 PO ×2 (15:52)
[2025-01-19] MEDS ORDERED: POTA8 PO ×2 (15:52)
[2025-01-19] MEDS ORDERED: FURO20 PO ×2 (15:52)
--- NOTE | 2025-01-19 16:33 | NUR ---
DISCHARGE NOTE UPON GOING INTO THE PATIENT'S ROOM FOR D/C, PT AND PT'S BOYFRIEND WERE ARGUING AND THE PT'S BOYFRIEND LEFT. THIS RN PROCEEDED W/ THE D/C PROCESS. PT PROVIDED VERBAL AND WRITTEN INSTRUCTIONS AND REPORTED UNDERSTANDING. PT A&OX4, VSS, AMB IND, TOLERATING PO, VOIDING, AND DENIED PAIN. PT STATED SHE WOULD LIKE A [facility]AX[facility] FOR TRANSPORT. UPON SETTING UP TRANSPORT, THE PT'S BOYFRIEND CALLED AND REQUESTED TO SPEAK TO THIS RN. PT'S BOYFRIEND REQUESTED I ASK PT IF PT WAS AGREEABLE TO LET HIM TRANSPORT HER HOME. PT WAS AGREEABLE TO HAVE HIM TRANSPORT HER. AT APPROX 1630, PT OBSERVED WALKING OUT TO THE ELEVATOR ALONE. FILLING STATION ATTENDANT KAMERON NOTIFIED.
[2025-01-20] MEDS ORDERED: Furosemide 20 MG Tab PO SCH (09:00)
[2025-01-20 22:50] LABS: ERYTHROPOIETIN 11 mU/mL (4-27)
== END 2025-01-19 16:30 | disposition home or self-care (01) | DRG 293 ==
LOC: ER 08:11 → MEDS 13:10
PROVIDERS: Internal Medicine; Physician Assistant; Student in an Organized Health Care Education/Training Program; ADMIT Family Medicine
DX: I11.0 Hypertensive heart disease with heart failure (principal); I50.811 Acute right heart failure; E66.813 Obesity, class 3; F15.90 Other stimulant use, unspecified, uncomplicated; D75.1 Secondary polycythemia; F17.200 Nicotine dependence, unspecified, uncomplicated; I07.1 Rheumatic tricuspid insufficiency; Z71.51 Drug abuse counseling and surveillance of drug abuser; Z88.0 Allergy status to penicillin; Z88.5 Allergy status to narcotic agent; Z88.8 Allergy status to other drugs, medicaments and biological substances; Z68.29 Body mass index [BMI] 29.0-29.9, adult
CPT/HCPCS: 0241U; 36415; 71046; 71260; 80053; 80061; 82668; 83690; 83735; 83880; 84443; 84484; 85025; 85520; 85610; 86141; 93005; 93010; 93306; 93970; 94761; 96374; 99285-25; A9270; J0360; J1644; J1885; J1940; Q9967

== ENCOUNTER 2025-01-21 03:13 | Emergency (ER) | payer OTHER ==
[~2025-01-21] VITALS: Ht 170.2 cm; Wt 98.4 kg
[~2025-01-21 03:13] MED LIST changes: +ACET325 PO; +FURO20 PO; +LOSA25 PO; +POTA8 PO
[2025-01-21 04:05] LABS: BASOPHILS ABSOLUTE AUTO 0.08 K/mm3 (0.00-0.23); BASOPHILS PERCENT AUTO 1 % (0-2); EOSINOPHILS ABSOLUTE AUTO 0.22 K/mm3 (0.00-0.68); EOSINOPHILS PERCENT AUTO 2 % (0-6); Hematocrit 53.7 % (33.0-51.0); Hemoglobin 18.4 g/dL (11.5-16.0); IMMATURE GRAN ABSOLUTE AUTO 0.03 K/mm3 (0.00-0.10); IMMATURE GRAN PERCENT AUTO 0 % (0-1); LYMPHOCYTES ABSOLUTE AUTO 3.66 K/mm3 (0.84-5.20); LYMPHOCYTES PERCENT AUTO 36 % (21-46); MONOCYTES ABSOLUTE AUTO 0.83 K/mm3 (0.16-1.47); MONOCYTES PERCENT AUTO 8 % (4-13); Mean Corpuscular HGB 30.3 pg (26.0-34.0); Mean Corpuscular HGB Conc 34.3 g/dL (31.5-36.5); Mean Corpuscular Volume 88 fL (80-100); NEUTROPHILS ABSOLUTE AUTO 5.46 K/mm3 (1.96-9.15); NEUTROPHILS PERCENT AUTO 53 % (41-73); Platelet Count 191 K/mm3 (150-400); RDW Coefficient Variation 13.5 % (11.7-14.2); RDW Standard Deviation 43.7 fL (35.1-46.3); Red Blood Cell Count 6.08 M/mm3 (3.80-5.20); White Blood Cell Count 10.28 K/mm3 (4.00-11.30)
[2025-01-21 04:27] LABS: Albumin, Blood 3.2 g/dL (3.4-5.0); Albumin/Globulin Ratio 0.8 (0.8-1.8); Bilirubin, Total 0.6 mg/dL (0.1-1.0); Bun/Creatinine Ratio 25.1 (12.0-20.0); Calcium, Blood 9.3 mg/dL (8.5-10.1); Creatinine, Blood 0.8 mg/dL (0.40-1.00); Globulin, Blood 4.1 g/dL (2.2-4.0); Potassium, Blood 4.2 mmol/L (3.5-5.5); Total Protein, Blood 7.3 g/dL (6.4-8.2)
[2025-01-21 08:29] VITALS: BP 168/84
== END 2025-01-21 08:40 | disposition home or self-care (01) ==
LOC: ER 03:13
PROVIDERS: Family Medicine
DX: R07.89 Other chest pain (principal); I11.0 Hypertensive heart disease with heart failure; I50.9 Heart failure, unspecified; Z79.899 Other long term (current) drug therapy
CPT/HCPCS: 71046; 80053; 83690; 83880; 84484; 85025; 93005; 93010; 99285-25

== ENCOUNTER 2025-03-19 00:46 | Emergency (ER) | payer OTHER ==
[~2025-03-19] VITALS: Ht 170.2 cm; Wt 127.5 kg
[2025-03-19 01:23] LABS: BASOPHILS ABSOLUTE AUTO 0.08 K/mm3 (0.00-0.23); BASOPHILS PERCENT AUTO 1 % (0-2); EOSINOPHILS ABSOLUTE AUTO 0.23 K/mm3 (0.00-0.68); EOSINOPHILS PERCENT AUTO 2 % (0-6); Hematocrit 49.4 % (33.0-51.0); IMMATURE GRAN ABSOLUTE AUTO 0.03 K/mm3 (0.00-0.10); IMMATURE GRAN PERCENT AUTO 0 % (0-1); LYMPHOCYTES ABSOLUTE AUTO 3.04 K/mm3 (0.84-5.20); LYMPHOCYTES PERCENT AUTO 32 % (21-46); MONOCYTES ABSOLUTE AUTO 0.77 K/mm3 (0.16-1.47); MONOCYTES PERCENT AUTO 8 % (4-13); Mean Corpuscular HGB Conc 34.4 g/dL (31.5-36.5); Mean Corpuscular Volume 87 fL (80-100); Mean Platelet Volume 10.1 fL (9.1-12.4); NEUTROPHILS PERCENT AUTO 57 % (41-73); Platelet Count 193 K/mm3 (150-400); RDW Coefficient Variation 13.6 % (11.7-14.2); Red Blood Cell Count 5.67 M/mm3 (3.80-5.20); White Blood Cell Count 9.55 K/mm3 (4.00-11.30)
[2025-03-19 01:40] LABS: Albumin, Blood 3.1 g/dL (3.4-5.0); Albumin/Globulin Ratio 0.8 (0.8-1.8); Bun/Creatinine Ratio 17.8 (12.0-20.0); Calcium, Blood 8.9 mg/dL (8.5-10.1); Creatinine, Blood 0.79 mg/dL (0.40-1.00); Potassium, Blood 3.9 mmol/L (3.5-5.5); Total Protein, Blood 7.1 g/dL (6.4-8.2)
[2025-03-19 03:15] VITALS: BP 147/101
== END 2025-03-19 03:16 | disposition home or self-care (01) ==
LOC: ER 00:46
PROVIDERS: Emergency Medicine
DX: I51.7 Cardiomegaly (principal); R79.89 Other specified abnormal findings of blood chemistry; Z68.41 Body mass index [BMI] 40.0-44.9, adult; F17.200 Nicotine dependence, unspecified, uncomplicated; Z88.0 Allergy status to penicillin; Z79.82 Long term (current) use of aspirin; Z79.899 Other long term (current) drug therapy; I50.9 Heart failure, unspecified; Z59.89 Other problems related to housing and economic circumstances
CPT/HCPCS: 71046; 80053; 83880; 84484; 85025; 93005; 93010; 99285-25

== ENCOUNTER 2025-03-27 22:42 | Emergency (ER) | payer OTHER ==
[~2025-03-27] VITALS: Ht 170.2 cm; Wt 121.1 kg
[2025-03-27 23:07] LABS: PCO2 Arterial 38.9 mmHg (35-45); PO2 Arterial 50.2 mmHg (80-100); pH Blood Arterial 7.37 (7.35-7.45)
[2025-03-27 23:11] LABS: BASOPHILS ABSOLUTE AUTO 0.09 K/mm3 (0.00-0.23); BASOPHILS PERCENT AUTO 1 % (0-2); EOSINOPHILS PERCENT AUTO 2 % (0-6); Hematocrit 50.9 % (33.0-51.0); IMMATURE GRAN ABSOLUTE AUTO 0.02 K/mm3 (0.00-0.10); IMMATURE GRAN PERCENT AUTO 0 % (0-1); LYMPHOCYTES ABSOLUTE AUTO 3.18 K/mm3 (0.84-5.20); LYMPHOCYTES PERCENT AUTO 35 % (21-46); MONOCYTES ABSOLUTE AUTO 0.73 K/mm3 (0.16-1.47); MONOCYTES PERCENT AUTO 8 % (4-13); Mean Corpuscular HGB 29.5 pg (26.0-34.0); Mean Corpuscular HGB Conc 33.4 g/dL (31.5-36.5); Mean Corpuscular Volume 88 fL (80-100); Mean Platelet Volume 10.8 fL (9.1-12.4); NEUTROPHILS ABSOLUTE AUTO 4.92 K/mm3 (1.96-9.15); NEUTROPHILS PERCENT AUTO 54 % (41-73); Platelet Count 192 K/mm3 (150-400); RDW Coefficient Variation 13.8 % (11.7-14.2); Red Blood Cell Count 5.77 M/mm3 (3.80-5.20); White Blood Cell Count 9.14 K/mm3 (4.00-11.30)
[2025-03-27 23:33] LABS: Albumin, Blood 3.4 g/dL (3.4-5.0); Albumin/Globulin Ratio 0.9 (0.8-1.8); Bilirubin, Total 0.8 mg/dL (0.1-1.0); Bun/Creatinine Ratio 18.2 (12.0-20.0); Calcium, Blood 8.9 mg/dL (8.5-10.1); Creatinine, Blood 0.88 mg/dL (0.40-1.00); Globulin, Blood 3.8 g/dL (2.2-4.0); Magnesium, Blood 1.7 mg/dL (1.6-2.4); Potassium, Blood 3.8 mmol/L (3.5-5.5); Total Protein, Blood 7.2 g/dL (6.4-8.2)
[2025-03-27 23:40] VITALS: BP 158/99
[2025-03-27] MEDS ORDERED: LORazepam 2 MG/ML 1ML Injection IV ONE (23:45)
[2025-03-27 23:48] LABS: Influenza A, PCR NEGATIVE (NEGATIVE); Influenza B, PCR NEGATIVE (NEGATIVE); Resp Syncytial Virus, PCR NEGATIVE (NEGATIVE); SARS-Cov-2 (COVID-19) PCR, MMC NEGATIVE (NEGATIVE)
== END 2025-03-28 00:51 | disposition home or self-care (01) ==
LOC: ER 22:42
PROVIDERS: Student in an Organized Health Care Education/Training Program
DX: R06.00 Dyspnea, unspecified (principal); I50.9 Heart failure, unspecified; F17.200 Nicotine dependence, unspecified, uncomplicated; Z11.52 Encounter for screening for COVID-19; Z87.09 Personal history of other diseases of the respiratory system; Z88.0 Allergy status to penicillin; Z88.5 Allergy status to narcotic agent; Z88.8 Allergy status to other drugs, medicaments and biological substances; Z79.899 Other long term (current) drug therapy
CPT/HCPCS: 0241U; 36600; 71045; 71260; 80053; 82803; 83690; 83735; 83880; 84484; 85025; 93005; 93010; 96374; 99285-25; J2060; Q9967

== ENCOUNTER 2025-04-02 21:45 | Emergency (ER) | payer OTHER ==
[~2025-04-02] VITALS: Ht 170.2 cm; Wt 107.0 kg
[2025-04-02 22:46] LABS: BASOPHILS ABSOLUTE AUTO 0.07 K/mm3 (0.00-0.23); BASOPHILS PERCENT AUTO 1 % (0-2); EOSINOPHILS PERCENT AUTO 3 % (0-6); Hematocrit 47.2 % (33.0-51.0); Hemoglobin 16.1 g/dL (11.5-16.0); IMMATURE GRAN ABSOLUTE AUTO 0.03 K/mm3 (0.00-0.10); IMMATURE GRAN PERCENT AUTO 0 % (0-1); LYMPHOCYTES ABSOLUTE AUTO 1.99 K/mm3 (0.84-5.20); LYMPHOCYTES PERCENT AUTO 25 % (21-46); MONOCYTES ABSOLUTE AUTO 0.57 K/mm3 (0.16-1.47); MONOCYTES PERCENT AUTO 7 % (4-13); Mean Corpuscular HGB 29.7 pg (26.0-34.0); Mean Corpuscular HGB Conc 34.1 g/dL (31.5-36.5); Mean Corpuscular Volume 87 fL (80-100); Mean Platelet Volume 10.5 fL (9.1-12.4); NEUTROPHILS ABSOLUTE AUTO 5.14 K/mm3 (1.96-9.15); NEUTROPHILS PERCENT AUTO 64 % (41-73); Platelet Count 178 K/mm3 (150-400); RDW Coefficient Variation 13.9 % (11.7-14.2); RDW Standard Deviation 44.2 fL (35.1-46.3); Red Blood Cell Count 5.43 M/mm3 (3.80-5.20)
[2025-04-02 23:00] LABS: Albumin, Blood 3.3 g/dL (3.4-5.0); Albumin/Globulin Ratio 0.8 (0.8-1.8); Bilirubin, Total 0.8 mg/dL (0.1-1.0); Bun/Creatinine Ratio 14.8 (12.0-20.0); Calcium, Blood 9.1 mg/dL (8.5-10.1); Creatinine, Blood 0.81 mg/dL (0.40-1.00); Globulin, Blood 3.9 g/dL (2.2-4.0); Potassium, Blood 3.8 mmol/L (3.5-5.5); Total Protein, Blood 7.2 g/dL (6.4-8.2)
[2025-04-02 23:30] VITALS: BP 142/94
[2025-04-02 23:39] LABS: Influenza A, PCR NEGATIVE (NEGATIVE); Influenza B, PCR NEGATIVE (NEGATIVE); Resp Syncytial Virus, PCR NEGATIVE (NEGATIVE); SARS-Cov-2 (COVID-19) PCR, MMC NEGATIVE (NEGATIVE)
[2025-04-03 00:45] LABS: Base Excess Venous -2.6 mmol/L; Bicarbonate Venous 22.7 mmol/L (24.0-30.0); PCO2 Venous 35.8 mmHg (38-42)
[2025-04-03] MEDS ORDERED: DiphenhydrAMINE HCl 50 MG/ML 1ML Vial IV ONE (01:55)
[2025-04-03] MEDS ORDERED: LORazepam 2 MG/ML 1ML Injection IV ONE (03:30)
== END 2025-04-03 03:59 | disposition home or self-care (01) ==
LOC: ER 21:45
PROVIDERS: Emergency Medicine; Student in an Organized Health Care Education/Training Program
DX: R06.02 Shortness of breath (principal); R63.5 Abnormal weight gain; F41.9 Anxiety disorder, unspecified; G47.34 Idiopathic sleep related nonobstructive alveolar hypoventilation; R06.4 Hyperventilation; I50.9 Heart failure, unspecified; Z88.0 Allergy status to penicillin; Z88.5 Allergy status to narcotic agent; Z88.8 Allergy status to other drugs, medicaments and biological substances; Z79.899 Other long term (current) drug therapy; F17.200 Nicotine dependence, unspecified, uncomplicated; Z11.52 Encounter for screening for COVID-19; Z87.09 Personal history of other diseases of the respiratory system
CPT/HCPCS: 0241U; 71046; 80053; 82803; 83690; 83880; 84484; 85025; 85379; 93005; 93010; 96374; 96375; 99285-25; J1200; J2060

== ENCOUNTER 2025-04-06 18:37 | Emergency (ER) | payer OTHER ==
[~2025-04-06] VITALS: Ht 170.2 cm; Wt 107.5 kg
[2025-04-06 19:36] LABS: BASOPHILS ABSOLUTE AUTO 0.09 K/mm3 (0.00-0.23); BASOPHILS PERCENT AUTO 1 % (0-2); EOSINOPHILS PERCENT AUTO 1 % (0-6); IMMATURE GRAN ABSOLUTE AUTO 0.02 K/mm3 (0.00-0.10); IMMATURE GRAN PERCENT AUTO 0 % (0-1); LYMPHOCYTES ABSOLUTE AUTO 2.04 K/mm3 (0.84-5.20); LYMPHOCYTES PERCENT AUTO 27 % (21-46); MONOCYTES ABSOLUTE AUTO 0.71 K/mm3 (0.16-1.47); MONOCYTES PERCENT AUTO 9 % (4-13); Mean Corpuscular Volume 88 fL (80-100); Mean Platelet Volume 10.8 fL (9.1-12.4); NEUTROPHILS ABSOLUTE AUTO 4.62 K/mm3 (1.96-9.15); NEUTROPHILS PERCENT AUTO 61 % (41-73); Platelet Count 210 K/mm3 (150-400); RDW Coefficient Variation 13.7 % (11.7-14.2); RDW Standard Deviation 44.3 fL (35.1-46.3); Red Blood Cell Count 5.66 M/mm3 (3.80-5.20); White Blood Cell Count 7.58 K/mm3 (4.00-11.30)
[2025-04-06] MEDS ORDERED: Morphine Sulfate 4 MG/1 ML Injection IV ONE (20:20)
[2025-04-06] MEDS ORDERED: Dexamethasone Sod Phos 10 MG/ML 1ML VIAL IV ONE (20:20)
[2025-04-06 20:57] LABS: Albumin, Blood 3.7 g/dL (3.4-5.0); Albumin/Globulin Ratio 0.9 (0.8-1.8); Bilirubin, Total 1.2 mg/dL (0.1-1.0); Bun/Creatinine Ratio 18.6 (12.0-20.0); Calcium, Blood 9.5 mg/dL (8.5-10.1); Creatinine, Blood 0.86 mg/dL (0.40-1.00); Globulin, Blood 3.9 g/dL (2.2-4.0); Potassium, Blood 3.6 mmol/L (3.5-5.5); Total Protein, Blood 7.6 g/dL (6.4-8.2)
[2025-04-06 22:30] VITALS: BP 156/114
[2025-04-07] MEDS ORDERED: DECADRON6 M1 PO (01:57)
[2025-04-07] MEDS ORDERED: ACET500 PO (01:57)
== END 2025-04-07 02:18 | disposition home or self-care (01) ==
LOC: ER 18:37
PROVIDERS: Emergency Medicine; Student in an Organized Health Care Education/Training Program
DX: J02.9 Acute pharyngitis, unspecified (principal); F17.200 Nicotine dependence, unspecified, uncomplicated; Z79.899 Other long term (current) drug therapy; Z88.0 Allergy status to penicillin; Z88.6 Allergy status to analgesic agent; Z88.5 Allergy status to narcotic agent; Z88.8 Allergy status to other drugs, medicaments and biological substances
CPT/HCPCS: 70491; 80053; 85025; 87081; 96374-59; 96375; 99283-25; J1100; J2270; Q9967

== ENCOUNTER 2025-04-09 17:32 | Emergency (ER) | payer OTHER ==
[~2025-04-09] VITALS: Ht 170.2 cm; Wt 107.0 kg
[~2025-04-09 17:32] MED LIST changes: +ACET500 PO; +DECADRON6 M1 PO
[2025-04-09 18:14] LABS: BASOPHILS ABSOLUTE AUTO 0.11 K/mm3 (0.00-0.23); BASOPHILS PERCENT AUTO 1 % (0-2); EOSINOPHILS ABSOLUTE AUTO 0.19 K/mm3 (0.00-0.68); EOSINOPHILS PERCENT AUTO 2 % (0-6); Hematocrit 49.9 % (33.0-51.0); Hemoglobin 16.8 g/dL (11.5-16.0); IMMATURE GRAN ABSOLUTE AUTO 0.04 K/mm3 (0.00-0.10); IMMATURE GRAN PERCENT AUTO 0 % (0-1); LYMPHOCYTES ABSOLUTE AUTO 3.65 K/mm3 (0.84-5.20); LYMPHOCYTES PERCENT AUTO 34 % (21-46); MONOCYTES ABSOLUTE AUTO 1.27 K/mm3 (0.16-1.47); MONOCYTES PERCENT AUTO 12 % (4-13); Mean Corpuscular HGB 29.8 pg (26.0-34.0); Mean Corpuscular HGB Conc 33.7 g/dL (31.5-36.5); Mean Corpuscular Volume 89 fL (80-100); NEUTROPHILS ABSOLUTE AUTO 5.55 K/mm3 (1.96-9.15); NEUTROPHILS PERCENT AUTO 51 % (41-73); Platelet Count 213 K/mm3 (150-400); RDW Coefficient Variation 14.4 % (11.7-14.2); RDW Standard Deviation 45.7 fL (35.1-46.3); Red Blood Cell Count 5.64 M/mm3 (3.80-5.20); White Blood Cell Count 10.81 K/mm3 (4.00-11.30)
[2025-04-09 18:39] LABS: Bun/Creatinine Ratio 22.6 (12.0-20.0); Calcium, Blood 9.8 mg/dL (8.5-10.1); Creatinine, Blood 0.84 mg/dL (0.40-1.00); Potassium, Blood 3.6 mmol/L (3.5-5.5)
[2025-04-09 19:30] VITALS: BP 93/63
[2025-04-09 20:01] LABS: Ethanol (Alcohol), Blood, Med <3 mg/dL; Free Thyroxine 1.19 ng/dL (0.70-1.60); Salicylate <1.7 mg/dL (2.8-20.0)
[2025-04-09 20:09] LABS: Acetaminophen, Random 2.2 ug/mL (10.0-30.0)
[2025-04-09 20:17] LABS: Alanine Aminotransfer (ALT/SGP 25 U/L (12-78); Albumin, Blood 2.5 g/dL (3.4-5.0); Alk Phos 115 U/L (50-136); Anion Gap 9 mmol/L (3-11); Aspartate Aminotrans (AST/SGOT 20 U/L (12-37); Bilirubin, Total 0.6 mg/dL (0.1-1.0); Blood Urea Nitrogen 16 mg/dL (8-24); CO2, Blood 19 mmol/L (21-32); Chloride, Blood 117 mmol/L (98-108); Creatinine, Blood 0.57 mg/dL (0.40-1.00); Globulin, Blood 2.5 g/dL (2.2-4.0); Glomerular Filtration Rate 123 (60-); Glucose, Blood 92 mg/dL (70-99); Potassium, Blood 2.6 mmol/L (3.5-5.5); Sodium, Blood 142 mmol/L (136-145)
[2025-04-09 20:26] LABS: Influenza A, PCR NEGATIVE (NEGATIVE); Influenza B, PCR NEGATIVE (NEGATIVE); Resp Syncytial Virus, PCR NEGATIVE (NEGATIVE); SARS-Cov-2 (COVID-19) PCR, MMC NEGATIVE (NEGATIVE)
[2025-04-20] MEDS ORDERED: TRAZ50 PO (22:15)
[2025-04-21] MEDS ORDERED: POTCHL20ER PO (01:47)
[2025-04-21] MEDS ORDERED: LASIX20 M2 PO (01:47)
== END 2025-04-09 19:52 | disposition home or self-care (01) ==
LOC: ER 17:32
PROVIDERS: Emergency Medicine
DX: R45.851 Suicidal ideations (principal); R07.89 Other chest pain; E87.6 Hypokalemia; I50.9 Heart failure, unspecified; Z53.29 Procedure and treatment not carried out because of patient's decision for other reasons; Z88.0 Allergy status to penicillin; Z88.6 Allergy status to analgesic agent; Z88.5 Allergy status to narcotic agent; Z79.899 Other long term (current) drug therapy; Z87.891 Personal history of nicotine dependence
CPT/HCPCS: 0241U; 71045; 80048; 80053; 80320; 83880; 84439; 84443; 84484; 85025; 85379; 93005; 93010; 99285-25; G0480

== ENCOUNTER 2025-06-10 18:26 | Emergency (ER) | payer OTHER ==
[~2025-06-10] VITALS: Ht 157.5 cm; Wt 107.0 kg
[~2025-06-10 18:26] MED LIST changes: +LASIX20 M2 PO; +POTCHL20ER PO; +TRAZ50 PO
[2025-06-10 19:19] LABS: BASOPHILS ABSOLUTE AUTO 0.09 K/mm3 (0.00-0.23); BASOPHILS PERCENT AUTO 1 % (0-2); EOSINOPHILS ABSOLUTE AUTO 0.20 K/mm3 (0.00-0.68); EOSINOPHILS PERCENT AUTO 2 % (0-6); Hematocrit 52.1 % (33.0-51.0); Hemoglobin 17.8 g/dL (11.5-16.0); IMMATURE GRAN ABSOLUTE AUTO 0.02 K/mm3 (0.00-0.10); IMMATURE GRAN PERCENT AUTO 0 % (0-1); LYMPHOCYTES ABSOLUTE AUTO 2.55 K/mm3 (0.84-5.20); LYMPHOCYTES PERCENT AUTO 30 % (21-46); MONOCYTES ABSOLUTE AUTO 0.77 K/mm3 (0.16-1.47); MONOCYTES PERCENT AUTO 9 % (4-13); Mean Corpuscular HGB Conc 34.2 g/dL (31.5-36.5); Mean Corpuscular Volume 86 fL (80-100); NEUTROPHILS ABSOLUTE AUTO 4.83 K/mm3 (1.96-9.15); NEUTROPHILS PERCENT AUTO 57 % (41-73); NRBC ABSOLUTE 0.00 K/mm3 (0.00-0.02); NRBC Auto 0.0 /100 WBC (0.0-0.2); Platelet Count 219 K/mm3 (150-400); RDW Coefficient Variation 14.7 % (11.7-14.2); RDW Standard Deviation 46.1 fL (35.1-46.3)
[2025-06-10] MEDS ORDERED: Ipratropium/Albuterol SulF 2.5-0.5MG/3 ML Amp ONE ×2 (20:09→20:27)
[2025-06-10 20:24] LABS: pH Blood Venous 7.46 (7.34-7.37)
[2025-06-10] MEDS ORDERED: Albuterol 2.5 MG/3 ML VIAL ONE (20:27)
[2025-06-10] MEDS ORDERED: Ipratropium/Albuterol SulF 2.5-0.5MG/3 ML Amp INH ONE (20:30)
[2025-06-10] MEDS ORDERED: Albuterol 2.5 MG/3 ML VIAL INH SCH (20:35)
[2025-06-10 22:00] VITALS: BP 123/83
== END 2025-06-10 23:19 | disposition home or self-care (01) ==
LOC: ER 18:26
PROVIDERS: Student in an Organized Health Care Education/Training Program
DX: R06.02 Shortness of breath (principal); I50.9 Heart failure, unspecified; Z87.891 Personal history of nicotine dependence; Z88.0 Allergy status to penicillin; Z88.8 Allergy status to other drugs, medicaments and biological substances; Z88.5 Allergy status to narcotic agent; Z79.899 Other long term (current) drug therapy
CPT/HCPCS: 70450; 71045; 82803; 83690; 83880; 84484; 84703; 85025; 93005; 93010; 93971; 94644; 94660; 94664; 99285-25

== ENCOUNTER 2025-06-24 22:33 | Emergency (ER) | payer OTHER ==
[~2025-06-24] VITALS: Ht 170.2 cm; Wt 93.0 kg
[2025-06-24 22:38] VITALS: BP 133/97
[2025-06-24] MEDS ORDERED: SPIRONOLACTONE25 MG PO (22:42)
[2025-06-24 23:07] LABS: BASOPHILS ABSOLUTE AUTO 0.07 K/mm3 (0.00-0.23); BASOPHILS PERCENT AUTO 1 % (0-2); EOSINOPHILS ABSOLUTE AUTO 0.18 K/mm3 (0.00-0.68); EOSINOPHILS PERCENT AUTO 2 % (0-6); Hematocrit 51.4 % (33.0-51.0); Hemoglobin 17.3 g/dL (11.5-16.0); IMMATURE GRAN ABSOLUTE AUTO 0.03 K/mm3 (0.00-0.10); IMMATURE GRAN PERCENT AUTO 0 % (0-1); LYMPHOCYTES ABSOLUTE AUTO 2.35 K/mm3 (0.84-5.20); LYMPHOCYTES PERCENT AUTO 25 % (21-46); MONOCYTES ABSOLUTE AUTO 0.74 K/mm3 (0.16-1.47); MONOCYTES PERCENT AUTO 8 % (4-13); Mean Corpuscular HGB Conc 33.7 g/dL (31.5-36.5); Mean Corpuscular Volume 87 fL (80-100); NEUTROPHILS ABSOLUTE AUTO 6.11 K/mm3 (1.96-9.15); NEUTROPHILS PERCENT AUTO 65 % (41-73); NRBC ABSOLUTE 0.00 K/mm3 (0.00-0.02); NRBC Auto 0.0 /100 WBC (0.0-0.2); Platelet Count 201 K/mm3 (150-400); RDW Coefficient Variation 14.4 % (11.7-14.2); RDW Standard Deviation 46.1 fL (35.1-46.3)
[2025-06-24 23:24] LABS: Alanine Aminotransfer (ALT/SGP 27.0 U/L (12-78); Albumin, Blood 3.3 g/dL (3.4-5.0); Albumin/Globulin Ratio 0.8 (0.8-1.8); Anion Gap 10.0 mmol/L (3-11); Aspartate Aminotrans (AST/SGOT 29.0 U/L (12-37); Bilirubin, Total 0.9 mg/dL (0.1-1.0); Blood Urea Nitrogen 12.0 mg/dL (8-24); CO2, Blood 20.0 mmol/L (21-32); Calcium, Blood 8.9 mg/dL (8.5-10.1); Chloride, Blood 111.0 mmol/L (98-108); Creatinine, Blood 0.77 mg/dL (0.40-1.00); Globulin, Blood 4.4 g/dL (2.2-4.0); Glucose, Blood 151.0 mg/dL (70-99); Potassium, Blood 3.9 mmol/L (3.5-5.5); Sodium, Blood 137.0 mmol/L (136-145); Total Protein, Blood 7.7 g/dL (6.4-8.2)
== END 2025-06-24 23:30 | disposition left against medical advice (07) ==
LOC: ER 22:33
PROVIDERS: Emergency Medicine
DX: R07.9 Chest pain, unspecified (principal); R06.02 Shortness of breath; I50.9 Heart failure, unspecified; Z79.899 Other long term (current) drug therapy; Z53.21 Procedure and treatment not carried out due to patient leaving prior to being seen by health care provider
CPT/HCPCS: 80053; 83880; 84484; 85025; 93005; 93010; 99282-25

== ENCOUNTER 2025-07-09 03:10 | Emergency (ER) | payer OTHER ==
[~2025-07-09] VITALS: Ht 170.2 cm; Wt 121.1 kg
[~2025-07-09 03:10] MED LIST changes: +SPIRONOLACTONE25 MG PO
[2025-07-09 03:28] VITALS: BP 145/103
[2025-07-09 03:40] LABS: BASOPHILS ABSOLUTE AUTO 0.09 K/mm3 (0.00-0.23); BASOPHILS PERCENT AUTO 1 % (0-2); EOSINOPHILS ABSOLUTE AUTO 0.20 K/mm3 (0.00-0.68); EOSINOPHILS PERCENT AUTO 2 % (0-6); Hematocrit 53.5 % (33.0-51.0); Hemoglobin 18.0 g/dL (11.5-16.0); IMMATURE GRAN ABSOLUTE AUTO 0.03 K/mm3 (0.00-0.10); IMMATURE GRAN PERCENT AUTO 0 % (0-1); LYMPHOCYTES ABSOLUTE AUTO 3.31 K/mm3 (0.84-5.20); LYMPHOCYTES PERCENT AUTO 35 % (21-46); MONOCYTES ABSOLUTE AUTO 0.89 K/mm3 (0.16-1.47); MONOCYTES PERCENT AUTO 9 % (4-13); Mean Corpuscular HGB Conc 33.6 g/dL (31.5-36.5); Mean Corpuscular Volume 87 fL (80-100); NEUTROPHILS ABSOLUTE AUTO 5.03 K/mm3 (1.96-9.15); NEUTROPHILS PERCENT AUTO 53 % (41-73); NRBC ABSOLUTE 0.00 K/mm3 (0.00-0.02); NRBC Auto 0.0 /100 WBC (0.0-0.2); Platelet Count 202 K/mm3 (150-400); RDW Coefficient Variation 14.6 % (11.7-14.2); RDW Standard Deviation 46.9 fL (35.1-46.3)
[2025-07-09 04:05] LABS: Alanine Aminotransfer (ALT/SGP 36.0 U/L (12-78); Albumin, Blood 3.4 g/dL (3.4-5.0); Albumin/Globulin Ratio 0.8 (0.8-1.8); Anion Gap 9.0 mmol/L (3-11); Aspartate Aminotrans (AST/SGOT 35.0 U/L (12-37); Bilirubin, Total 0.8 mg/dL (0.1-1.0); Blood Urea Nitrogen 19.0 mg/dL (8-24); CO2, Blood 22.0 mmol/L (21-32); Calcium, Blood 9.0 mg/dL (8.5-10.1); Chloride, Blood 108.0 mmol/L (98-108); Creatinine, Blood 0.95 mg/dL (0.40-1.00); Globulin, Blood 4.4 g/dL (2.2-4.0); Glucose, Blood 97.0 mg/dL (70-99); Potassium, Blood 4.0 mmol/L (3.5-5.5); Sodium, Blood 135.0 mmol/L (136-145); Total Protein, Blood 7.8 g/dL (6.4-8.2)
[2025-07-09] MEDS ORDERED: LOSA25 PO (04:40)
[2025-07-09] MEDS ORDERED: SPIRONOLACTONE25 MG PO (04:40)
== END 2025-07-09 04:43 | disposition home or self-care (01) ==
LOC: ER 03:10
PROVIDERS: Student in an Organized Health Care Education/Training Program
DX: R06.02 Shortness of breath (principal); I50.9 Heart failure, unspecified; I27.20 Pulmonary hypertension, unspecified; F17.200 Nicotine dependence, unspecified, uncomplicated; Z88.0 Allergy status to penicillin; Z88.8 Allergy status to other drugs, medicaments and biological substances; Z88.5 Allergy status to narcotic agent; Z79.899 Other long term (current) drug therapy
CPT/HCPCS: 71046; 80053; 83880; 84484; 85025

== ENCOUNTER 2025-10-27 16:50 | Emergency (ER) | payer OTHER ==
[~2025-10-27] VITALS: Ht 170.2 cm; Wt 131.1 kg
[~2025-10-27 16:50] MED LIST changes: +LOSA50 PO; +PANT40 PO; +SPIR25 PO
[2025-10-27] MEDS ORDERED: LORazepam 2 MG/ML 1ML Injection IV ONE (17:05)
[2025-10-27 17:14] LABS: BASOPHILS ABSOLUTE AUTO 0.05 K/mm3 (0.00-0.23); BASOPHILS PERCENT AUTO 1 % (0-2); EOSINOPHILS ABSOLUTE AUTO 0.17 K/mm3 (0.00-0.68); EOSINOPHILS PERCENT AUTO 2 % (0-6); Hematocrit 45.7 % (33.0-51.0); Hemoglobin 15.1 g/dL (11.5-16.0); IMMATURE GRAN ABSOLUTE AUTO 0.06 K/mm3 (0.00-0.10); IMMATURE GRAN PERCENT AUTO 1 % (0-1); LYMPHOCYTES ABSOLUTE AUTO 1.24 K/mm3 (0.84-5.20); LYMPHOCYTES PERCENT AUTO 14 % (21-46); MONOCYTES ABSOLUTE AUTO 0.81 K/mm3 (0.16-1.47); MONOCYTES PERCENT AUTO 9 % (4-13); Mean Corpuscular HGB Conc 33.0 g/dL (31.5-36.5); Mean Corpuscular Volume 85 fL (80-100); NEUTROPHILS ABSOLUTE AUTO 6.86 K/mm3 (1.96-9.15); NEUTROPHILS PERCENT AUTO 75 % (41-73); NRBC ABSOLUTE 0.00 K/mm3 (0.00-0.02); NRBC Auto 0.0 /100 WBC (0.0-0.2); Platelet Count 210 K/mm3 (150-400); RDW Coefficient Variation 15.2 % (11.7-14.2); RDW Standard Deviation 46.8 fL (35.1-46.3)
[2025-10-27 17:34] LABS: Alanine Aminotransfer (ALT/SGP 26.0 U/L (12-78); Albumin, Blood 3.7 g/dL (3.4-5.0); Albumin/Globulin Ratio 0.8 (0.8-1.8); Anion Gap 11.0 mmol/L (3-11); Aspartate Aminotrans (AST/SGOT 44.0 U/L (12-37); Bilirubin, Total 1.1 mg/dL (0.1-1.0); Blood Urea Nitrogen 14.0 mg/dL (8-24); CO2, Blood 25.0 mmol/L (21-32); Calcium, Blood 9.5 mg/dL (8.5-10.1); Chloride, Blood 101.0 mmol/L (98-108); Creatinine, Blood 0.75 mg/dL (0.40-1.00); Globulin, Blood 4.7 g/dL (2.2-4.0); Glucose, Blood 120.0 mg/dL (70-99); Potassium, Blood 3.4 mmol/L (3.5-5.5); Sodium, Blood 134.0 mmol/L (136-145); Total Protein, Blood 8.4 g/dL (6.4-8.2)
[2025-10-27 20:53] VITALS: BP 135/95
== END 2025-10-27 20:55 | disposition home or self-care (01) ==
LOC: ER 16:50
PROVIDERS: Emergency Medicine
DX: R06.02 Shortness of breath (principal); R07.9 Chest pain, unspecified; I11.0 Hypertensive heart disease with heart failure; I50.9 Heart failure, unspecified; I25.2 Old myocardial infarction; Z87.891 Personal history of nicotine dependence; Z88.0 Allergy status to penicillin; Z88.6 Allergy status to analgesic agent; Z88.5 Allergy status to narcotic agent; Z79.899 Other long term (current) drug therapy
CPT/HCPCS: 71045; 80053; 83880; 84484; 85025; 96374; 99285-25; A9270; J1938; J2060

== ENCOUNTER 2025-11-01 23:42 | Inpatient (IN) | payer OTHER ==
[~2025-11-01] VITALS: Ht 162.6 cm; Wt 140.7 kg
[2025-11-02] MEDS ORDERED: FentaNYL Citrate 50 MCG/ML 2 ML Injection IV PRN (00:25)
[2025-11-02 00:40] LABS: BASOPHILS ABSOLUTE AUTO 0.09 K/mm3 (0.00-0.23); BASOPHILS PERCENT AUTO 1 % (0-2); EOSINOPHILS ABSOLUTE AUTO 0.17 K/mm3 (0.00-0.68); EOSINOPHILS PERCENT AUTO 2 % (0-6); Hematocrit 43.5 % (33.0-51.0); Hemoglobin 14.1 g/dL (11.5-16.0); IMMATURE GRAN ABSOLUTE AUTO 0.02 K/mm3 (0.00-0.10); IMMATURE GRAN PERCENT AUTO 0 % (0-1); LYMPHOCYTES ABSOLUTE AUTO 2.24 K/mm3 (0.84-5.20); LYMPHOCYTES PERCENT AUTO 30 % (21-46); MONOCYTES ABSOLUTE AUTO 0.76 K/mm3 (0.16-1.47); MONOCYTES PERCENT AUTO 10 % (4-13); Mean Corpuscular HGB Conc 32.4 g/dL (31.5-36.5); Mean Corpuscular Volume 86 fL (80-100); NEUTROPHILS ABSOLUTE AUTO 4.30 K/mm3 (1.96-9.15); NEUTROPHILS PERCENT AUTO 57 % (41-73); NRBC ABSOLUTE 0.00 K/mm3 (0.00-0.02); NRBC Auto 0.0 /100 WBC (0.0-0.2); Platelet Count 252 K/mm3 (150-400); RDW Coefficient Variation 15.4 % (11.7-14.2); RDW Standard Deviation 47.4 fL (35.1-46.3)
[2025-11-02 00:53] LABS: Alanine Aminotransfer (ALT/SGP 32.0 U/L (12-78); Albumin, Blood 3.4 g/dL (3.4-5.0); Albumin/Globulin Ratio 0.8 (0.8-1.8); Anion Gap 12.0 mmol/L (3-11); Aspartate Aminotrans (AST/SGOT 25.0 U/L (12-37); Bilirubin, Total 0.9 mg/dL (0.1-1.0); Blood Urea Nitrogen 15.0 mg/dL (8-24); CO2, Blood 21.0 mmol/L (21-32); Calcium, Blood 9.6 mg/dL (8.5-10.1); Chloride, Blood 106.0 mmol/L (98-108); Creatinine, Blood 0.86 mg/dL (0.40-1.00); Globulin, Blood 4.0 g/dL (2.2-4.0); Glucose, Blood 101.0 mg/dL (70-99); Potassium, Blood 3.7 mmol/L (3.5-5.5); Sodium, Blood 135.0 mmol/L (136-145); Total Protein, Blood 7.4 g/dL (6.4-8.2)
[2025-11-02] MEDS ORDERED: Morphine Sulfate 4 MG/1 ML Injection IV ONE ×2 (01:05→03:55)
[2025-11-02] MEDS ORDERED: LORazepam 2 MG/ML 1ML Injection IV ONE (01:45)
[2025-11-02] MEDS ORDERED: LORazepam 2 MG/ML 1ML Injection IV PRN ×2 (04:00→12:42)
[2025-11-02] MEDS ORDERED: Morphine Sulfate 4 MG/1 ML Injection IV PRN (04:35)
[2025-11-02] MEDS ORDERED: Ondansetron HCl 2 MG / ML 2ML Vial IV ONE (05:55)
[2025-11-02] MEDS ORDERED: Ondansetron HCl 2 MG / ML 2ML Vial IV PRN (06:20)
[2025-11-02] MEDS ORDERED: FLU VACC TS2025-26(6MOS UP)/PF 45 MCG/0.5 ML SYRINGE IM SCH (06:20)
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
--- NOTE | 2025-11-02 08:43 | NUR ---
RECEIVED REPORT FROM MARGARET RANGEL
[2025-11-02] MEDS ORDERED: Enoxaparin 40 MG/0.4 ML SYR SC SCH (09:00)
[2025-11-02] MEDS ORDERED: Bumetanide2 MG PO (09:43)
[2025-11-02 10:56] LABS: Prothrombin Time Results 13.2 Sec (9.7-11.5)
[2025-11-02 11:43] LABS: Source, Urine Clean Catch
[2025-11-02 11:49] LABS: Bilirubin, Urine Neg (Neg); Glucose Qualitative, Urine Neg (Neg); Ketones, Urine Neg (Neg); Leukocyte Esterase, Urine 1+ (Neg); Protein, Urine 1+ (Neg); Specific Gravity, Urine 1.015 (1.003-1.022); Urobilinogen, Urine NORM (Normal)
[2025-11-02 11:53] VITALS: BP 103/77
[2025-11-02 11:54] LABS: Color, Urine Pale Yellow (P-Yellow)
[2025-11-02 12:00] LABS: U Amphetamine Screen Not Detected; U Barbiturate Screen Not Detected; U Benzodiazapine Screen Not Detected; U Buprenorphine Screen Not Detected; U Cannabinoids Screen Not Detected; U Cocaine Screen Not Detected; U Methadone Screen Not Detected; U Methamphetamine Screen DETECTED; U Opiates Screen DETECTED; U Oxycodone Screen Not Detected; U Phencyclidine Screen Not Detected
--- NOTE | 2025-11-02 14:49 | NUR ---
PALLIATIVE CARE NOTE: SPOKE WITH PRIMARY RN ABOUT PT CONCERNS. PT IS DENYING RECENT USE OF METH AND OPIOIDS. TOX SCREEN WAS POSITIVE ON ADMIT. PT WAS ALSO DEFLECTING BLAME FOR NOT TAKING HER MEDICATIONS ONTO HER BOYFRIEND. ACCORDING TO PRIMARY RN, THEY BROKE UP RELATIONSHIP TODAY OVER THIS. PT C/O ABD PAIN. NO OTHER SYMPTOMS AT THIS TIME. POTENTIAL FOR WITHDRAWAL SYMPTOMS. CT SCAN WAS NEGATIVE. CONCERNS DISCUSSED ABOUT PC VISIT POTENTIALLY AGRAVATING PT SHE HAS ALREADY HAD DIFFICULT DAY. PLAN IS FOR PRIMARY RN TO TALK TO PT TO SEE IF SHE IS AGREEABLE TO VISIT FIRST.
[2025-11-02 16:02] VITALS: BP 122/72
[2025-11-02 16:03] VITALS: BP 122/72
--- NOTE | 2025-11-02 17:15 | NUR ---
SHIFT SUMMARY PATIENT IN BED THIS SHIFT. PUREWICK IN PLACE FOR WORK OF BREATHING EXERTION. ON 4 LITERS NC SATING LOW 90'S TO HIGH 80'S. OCCASIONALLY WILL BECOME DUSKY AND FEEL ADDITIONALLY SHORT OF BREATH, CONTINUES TO MAINTAIN SATS AT THESE TIMES. ECHO, CHEST X RAY, UA AND CX PENDING. MORPHINE FOR ABDOMINAL PAIN. PTS MOM UPDATED PER PT REQUEST. SPOUSE INTERMITTENTLY IN ROOM, APPROPRIATE BEHAVIOURS THIS SHIFT. ABLE TO MAKE NEEDS KNOWN. CALL LIGHT IN REACH
[2025-11-02 19:23] VITALS: BP 106/82
[2025-11-02 20:53] LABS: pH Blood Venous 7.39 (7.34-7.37)
[2025-11-02 23:09] VITALS: BP 126/77
[2025-11-03 04:01] LABS: BASOPHILS ABSOLUTE AUTO 0.07 K/mm3 (0.00-0.23); BASOPHILS PERCENT AUTO 1 % (0-2); EOSINOPHILS ABSOLUTE AUTO 0.23 K/mm3 (0.00-0.68); EOSINOPHILS PERCENT AUTO 3 % (0-6); Hematocrit 42.3 % (33.0-51.0); Hemoglobin 13.4 g/dL (11.5-16.0); IMMATURE GRAN ABSOLUTE AUTO 0.02 K/mm3 (0.00-0.10); IMMATURE GRAN PERCENT AUTO 0 % (0-1); LYMPHOCYTES ABSOLUTE AUTO 2.13 K/mm3 (0.84-5.20); LYMPHOCYTES PERCENT AUTO 28 % (21-46); MONOCYTES ABSOLUTE AUTO 0.67 K/mm3 (0.16-1.47); MONOCYTES PERCENT AUTO 9 % (4-13); Mean Corpuscular HGB Conc 31.7 g/dL (31.5-36.5); Mean Corpuscular Volume 89 fL (80-100); NEUTROPHILS ABSOLUTE AUTO 4.55 K/mm3 (1.96-9.15); NEUTROPHILS PERCENT AUTO 59 % (41-73); NRBC ABSOLUTE 0.00 K/mm3 (0.00-0.02); NRBC Auto 0.0 /100 WBC (0.0-0.2); Platelet Count 252 K/mm3 (150-400); RDW Coefficient Variation 15.8 % (11.7-14.2); RDW Standard Deviation 50.7 fL (35.1-46.3)
[2025-11-03 04:31] LABS: Alanine Aminotransfer (ALT/SGP 30.0 U/L (12-78); Albumin, Blood 3.2 g/dL (3.4-5.0); Albumin/Globulin Ratio 0.8 (0.8-1.8); Anion Gap 10.0 mmol/L (3-11); Aspartate Aminotrans (AST/SGOT 27.0 U/L (12-37); Bilirubin, Total 1.1 mg/dL (0.1-1.0); Blood Urea Nitrogen 14.0 mg/dL (8-24); CO2, Blood 24.0 mmol/L (21-32); Calcium, Blood 9.2 mg/dL (8.5-10.1); Chloride, Blood 102.0 mmol/L (98-108); Creatinine, Blood 0.97 mg/dL (0.40-1.00); Globulin, Blood 3.9 g/dL (2.2-4.0); Glucose, Blood 126.0 mg/dL (70-99); Potassium, Blood 3.4 mmol/L (3.5-5.5); Sodium, Blood 133.0 mmol/L (136-145); Total Protein, Blood 7.1 g/dL (6.4-8.2)
[2025-11-03 05:14] VITALS: BP 104/78
--- NOTE | 2025-11-03 05:57 | NUR ---
SHIFT SUMMARY PT A&O X4, ANXIOUS. SHE IS ABLE TO EXPRESS HER NEEDS. PT HAD AN EPISODE WHERE SHE WOKE UP AND WAS CONFUSED AND DID NOT KNOW WHERE SHE WAS. PT WILL HAVE BREIF EPISODES OF CONFUSION BUT CAN BE REORIENTED. PT HR IN THE 80'S, SR. SHE DENIES ANY CP/PRESSURE, NUMB/TINGLING, SBP STABLE. PT WAS ON 4L VIA NC AT START OF SHIFT. PT NOT TOLERATING CPAP FOR LONG T/O NIGHT. PT DESATING TO THE LOW 70'S WITH SLEEP. PT T/O NIGHT HAD TO BE PLACED ON 11L VIA HFNC, SATING IN THE 70'S, RR IN THE MID 20'S. THIS MORNING PT SITTING UP AT BEDSID, ABLE TO TITRATE OXYGEN DOWN TO 5L AT THIS TIME. PTS CHEECKS/HANDS/FEET/LIPS WILL TURN BLUE AND SHE BECOMES SOB WITH MINIMAL ACTIVITY, MD AWARE. PT HAS PUREWICK IN PLACE. PT SITTING AT EDGE OF BED AT THIS TIME. CALL LIGHT IN REACH. WILL MONITOR PT AND REPORT TO ONCOMING RN.
[2025-11-03 07:15] VITALS: BP 142/92
--- NOTE | 2025-11-03 09:21 | NUR ---
NURSING PCU DAYSHIFT: Assumed care of pt at approx 0700. Sleeping t/o much of the a.m., requires physical stimuli to arouse, cooperative w/care when awake speech mumbled/slurred at times. C/O pain "everywhere" and "always", denies current need for intervention. Scabs and bruising scattered t/o, several large bruises to abd, redness w/scab to L breast, skin otherwise dusky and cyanotic around mouth and ext's. Tele in place, NSR, c/o chronic CP for "months", SBP 140's prior to a.m. meds, trace to 1+ edema. L/S dim in mid/lower lobes w/fine crackles present in LLL, occ harsh/METALLURGIST HELPER cough, respirations rapid and shallow, O2 sat mid 90's on 6L NC, refusing bipap at this time, continuous O2 monitoring in place. Abd obese, tender w/palp, BT+, incontinent of urine, PW in place w/dark yellow/orange urine draining. PIV x1 to L hand, s/l. Pt noted to have a box of pizza w/several containers of ranch at bedside. Provided education regarding heart failure and importance of reducing sodium. Pt denies desire to be compliant w/diet recommendations. S/O has not been at bedside since care was assumed. After assessment, medications, and breakfast, pt quickly returned to sleep. Call light in reach. Awaiting rounding from PMD, monitor for changes.
[2025-11-03 11:15] VITALS: BP 127/80
[2025-11-03 15:18] VITALS: BP 130/90
[2025-11-03] MEDS ORDERED: OxyCODONE 5 mg/Acetamin 325 mg TABLET PO PRN (17:20)
--- NOTE | 2025-11-03 17:31 | NUR ---
NURSING PCU DAYSHIFT SUMMARY: No significant changes t/o the shift. Tolerated bipap for approx 20 min before lunch and approx 1 hr early afternoon after ativan administration. Respirations remain rapid w/desaturations following minimal exertion. Continuing IV lasix w/about 1L u/o noted. Pt has little motivation to participate in ADL's and requires frequent encouragement though remained fairly cooperative w/care. Tearful intermittently t/o shift, often asking if medical status is improving. Mother called several times, telephone updates provided as allowed by patient. Pt agreeable to follow heart healty/low sodium diet, including no leftover pizza. Resting comfortably at this time. Call light in reach, cont to monitor until rpt is given to GRAYSON RN.
[2025-11-03] MEDS ORDERED: Albuterol 2.5 MG/3 ML VIAL INH PRN (17:55)
[2025-11-03 19:46] VITALS: BP 135/96
[2025-11-03 23:46] VITALS: BP 119/69
[2025-11-04 04:14] VITALS: BP 134/82
--- NOTE | 2025-11-04 06:27 | NUR ---
SHIFT SUMMARY PT IS DROWSY &O X4, ABLE TO MAKE NEEDS KNOWN, MOVING ALL EXTREMITIES WITH PURPOSE, REPOSITIONING SELF IN BED, CALLS APPROPRIATELY. CONTINUOUS SPO2, SPO2 GREATER THAN 92% ON 4L O2 VIA NC/ REFUSING CPAP T/O THIS SHIFT/ PT EDUCATED. CONTINUOUS TELE MONITORING, SINUS 90 S, BP STABLE WITH MAP GREATER THAN 65, CAP REFILL GREATER THAN 3 S/ FEET AND FINGERS PURPLE IN COLOR, PULSES PRESENT T/O. BOWEL TONES PRESENT IN ALL 4Q, PT DENIES FEELINGS OF CONSTIPATION. PUREWICK IN PLACE CONNECTED TO LOW CONTINUOUS SUCTION, URINE YELLOW IN COLOR. REPORTING PAIN TO LUNGS AND FEET/ MEDICATED PER ORDERS, PT ALSO REPORTING FEELING LIKE BUGS ARE CRAWLING ON HER SKIN. BED LOWEST POSITION, CALL LIGHT IN REACH, AWAITING TO GIVE REPORT TO ONCOMING RN.
[2025-11-04 08:01] VITALS: BP 131/107
[2025-11-04 08:07] LABS: BASOPHILS ABSOLUTE AUTO 0.08 K/mm3 (0.00-0.23); BASOPHILS PERCENT AUTO 1 % (0-2); EOSINOPHILS ABSOLUTE AUTO 0.27 K/mm3 (0.00-0.68); EOSINOPHILS PERCENT AUTO 4 % (0-6); Hematocrit 42.6 % (33.0-51.0); Hemoglobin 13.4 g/dL (11.5-16.0); IMMATURE GRAN ABSOLUTE AUTO 0.04 K/mm3 (0.00-0.10); IMMATURE GRAN PERCENT AUTO 1 % (0-1); LYMPHOCYTES ABSOLUTE AUTO 1.73 K/mm3 (0.84-5.20); LYMPHOCYTES PERCENT AUTO 24 % (21-46); MONOCYTES ABSOLUTE AUTO 0.73 K/mm3 (0.16-1.47); MONOCYTES PERCENT AUTO 10 % (4-13); Mean Corpuscular HGB Conc 31.5 g/dL (31.5-36.5); Mean Corpuscular Volume 88 fL (80-100); NEUTROPHILS ABSOLUTE AUTO 4.26 K/mm3 (1.96-9.15); NEUTROPHILS PERCENT AUTO 60 % (41-73); NRBC ABSOLUTE 0.00 K/mm3 (0.00-0.02); NRBC Auto 0.0 /100 WBC (0.0-0.2); Platelet Count 226 K/mm3 (150-400); RDW Coefficient Variation 15.8 % (11.7-14.2); RDW Standard Deviation 50.3 fL (35.1-46.3)
--- NOTE | 2025-11-04 08:35 | NUR ---
am note this rn assumed care at 0700. vital signs stable. spo2 >90% on 4l nc. patient is drowsy, but when woken up is alert and can hold a conversation. patient is oriented x4. patient denies pain, chest pain/pressure or shortness of breath this morning. patient lung sounds dim throughout. patient abd is active and nontedner. patient has scattered scabs and bruising throughout and general dusky appearance. patient has reddness on left breast. patient has purewick hooked up to suction with yellow urine. see shift assessment for further detials. plan of care is up to date at this time.
[2025-11-04 08:39] LABS: Alanine Aminotransfer (ALT/SGP 32.0 U/L (12-78); Albumin, Blood 3.3 g/dL (3.4-5.0); Albumin/Globulin Ratio 0.8 (0.8-1.8); Anion Gap 11.0 mmol/L (3-11); Aspartate Aminotrans (AST/SGOT 27.0 U/L (12-37); Bilirubin, Total 0.9 mg/dL (0.1-1.0); Blood Urea Nitrogen 14.0 mg/dL (8-24); CO2, Blood 24.0 mmol/L (21-32); Calcium, Blood 9.1 mg/dL (8.5-10.1); Chloride, Blood 102.0 mmol/L (98-108); Creatinine, Blood 0.77 mg/dL (0.40-1.00); Globulin, Blood 3.9 g/dL (2.2-4.0); Glucose, Blood 141.0 mg/dL (70-99); Potassium, Blood 3.5 mmol/L (3.5-5.5); Sodium, Blood 133.0 mmol/L (136-145); Total Protein, Blood 7.2 g/dL (6.4-8.2)
--- NOTE | 2025-11-04 08:48 | NUR ---
update this rn gave an update to mother, federica.
--- NOTE | 2025-11-04 09:41 | NUR ---
PALLIATIVE CARE NOTE: DISCUSSED CASE IN MDR. PER CERTIFIED NURSING ATTENDANT, PT NOT RECEPTIVE TO PALLIATIVE CARE VISIT. WILL REMAIN AVAILABLE NEEDED.
--- NOTE | 2025-11-04 10:31 | NUR ---
update-md rounding md minerani in to see patient and discussed improvement on oxygen compared to yesterday. patient verbalized agreement. plan of care remains up to date at this time.
[2025-11-04 11:43] VITALS: BP 121/90
[2025-11-04 16:28] VITALS: BP 136/103
--- NOTE | 2025-11-04 16:30 | NUR ---
ASSUMPTION OF CARE: Report recieved from Irene REY. Patient is resting comfortably at this time. Call light in reach.
--- NOTE | 2025-11-04 16:31 | NUR ---
shift summary-transfer of care patient neuro remains unchanged. vital signs stable. see previous notes. patient has declined multiple offers to get up into chair and stated "i want to nap". patient reposition self independently in bed. patient had a vistor this afternoon. patient medicated per emar for pain as needed. see emar for detials. no acute changes this shift. this rn gave report to wilfred de souza whom is assuming care of patient.
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
[2025-11-04 20:22] VITALS: BP 136/83
[2025-11-04 23:24] VITALS: BP 139/89
[2025-11-05] VITALS (7 sets, daily range): BP systolic 124–155; BP diastolic 44–121
--- NOTE | 2025-11-05 06:02 | NUR ---
SHIFT SUMMARY PT IS DROWSY &O X4, ABLE TO MAKE NEEDS KNOWN, MOVING ALL EXTREMITIES WITH PURPOSE, REPOSITIONING SELF IN BED. CONTINUOUS SPO2, SPO2 GREATER THAN 92% ON 4L O2 VIA NC THE MAJORITY OF THE SHIFT/ WHILE SLEEPING PT DID HAVE EPISODES OF STATING IN 70-80 S%/ PT DID TRY TO WEAR CPAP THIS SHIFT BUT PULLS IT OFF SOON AFTER . CONTINUOUS TELE MONITORING, SINUS 80-90 S, MURMUR HEARD, BP STABLE WITH MAP GREATER THAN 65, CAP REFILL GREATER THAN 3 S/ FEET AND FINGERS PURPLE IN COLOR, PULSES PRESENT T/O. BOWEL TONES PRESENT IN ALL 4Q, PT DENIES FEELINGS OF CONSTIPATION. PUREWICK IN PLACE CONNECTED TO LOW CONTINUOUS SUCTION, URINE YELLOW IN COLOR. REPORTING PAIN TO LUNGS AND FEET/ MEDICATED PER ORDERS. BED LOWEST POSITION, CALL LIGHT IN REACH, AWAITING TO GIVE REPORT TO ONCOMING RN.
--- NOTE | 2025-11-05 07:30 | NUR ---
Pt is lethargic, barely rouses to gentle verbal and tactile stimuli, but she does eventually. Vital signs are stable, afebrile. Sinus rhythm 81 bpm noted by telemetry. Pulses are palpable. Extremities are red, with cap refill 2 seconds. She is wearing 4 l/min O2 delivery and spo2 92-98%. Tachypneic 20-22 Resp/min without dyspnea noted. No adventitious lung sounds noted. She appears to be resting comfortably, on remote camera monitoring per PCU regulations. Call light is within her reach on the bedside table.
--- NOTE | 2025-11-05 09:18 | NUR ---
Pt sat up to eat breakfast. She stated she wanted to keep the purewick in to avoid having to get up out of bed. Blakeck dc'd at this time, to encourage mobility as tolerated. Pt said she was just going to go back to sleep; also said she wanted some IV morphine for chest discomfort.
--- NOTE | 2025-11-05 09:50 | NUR ---
ASSISTED TO BATHROOM. VOIDED. bACK TO BED, MINIMAL ASSIST NEEDED. dYSPNEA WITH EXERTION.
--- NOTE | 2025-11-05 12:51 | NUR ---
Pt is sleeping in between short trips to the toilet in the bathroom, or briefly eating while sitting up. Declined OOB to recliner.
--- NOTE | 2025-11-05 13:12 | NUR ---
Pt asked for her wallet and for the wall phone. These were given to her. Pt said earlier that she did not know how to work the phone, but at this time she is using it independently. She had a conversation with someone, cursed and yelled, and then put the phone down on the bedside table with a loud bang. She is still lying in bed. Spo2 93%, RR 24/min, appears to be resting comfortably with her eyes closed.
--- NOTE | 2025-11-05 13:27 | NUR ---
Phone call from pt's mother, Elizabet, who asked if the pt had discharge orders. She does not. Elizabet stated that the pt is trying to leave AMA and she was calling to ask family to come and get her. Elizabet asked us to not let her leave. I explained to Elizabet that the pt is autonomous and legally we can not force her to stay.
--- NOTE | 2025-11-05 13:41 | NUR ---
Pt asked for [employer] phone number and for her discharge papers. I told her that there are not any discharge orders for her now. Explained that she is still getting IV Lasix and that is not something she could receive unless she is still in hospital. At this time, she has ordered pizza and is waiting for its delivery to the unit. Her boyfriend Kolton also called on the phone wanting to talk with her.
--- NOTE | 2025-11-05 13:56 | NUR ---
Elizabet, pt's mother, called again asking "what is going on?". She wants to talk to the pt because she is unhappy that the pt is ordering [employer].
--- NOTE | 2025-11-05 14:03 | NUR ---
Pt's boyfriend Kolton arrived, and pt stated that she wants him to come in to visit. He is in the room talking with her now.
--- NOTE | 2025-11-05 14:05 | NUR ---
Pt is refusing to keep her spo2 monitor on.
--- NOTE | 2025-11-05 14:31 | NUR ---
Dr. Lazcano is here; pt is agreeable to try the CPAP with settings adjusted by the doctor.
--- NOTE | 2025-11-05 15:05 | NUR ---
PT C/O stabbing compression on her right chest, 8/10. Spo2 93% on 4 l/min, RR 24-26/min, blood pressure 147/44 (68) and heart rate 91 bpm. Pt states it is the same pain which she has a lot, and that she last had this morning around 4 am. After 2 mg IV morphine, pain was reduced to 5/10 and she said it is easier to breathe.
--- NOTE | 2025-11-05 15:08 | NUR ---
As soon as Dr. Lazcano left the room the patient removed the CPAP machine and said she wanted to eat first. States that when she tried to eat she began to have difficulty breathing and chest pain. She refuses to use the CPAP yet.
--- NOTE | 2025-11-05 17:30 | NUR ---
Pt asked for me to talk with boyfrienmana Hi about the pulmonologists conversation with the patient. He was given an update. Spoke with the patient about what her wishes might be for either leaving [place] at discharge for a senior care in [place] where she can get set up with a new living situation, or going back to live with Kolton. Kolton states that currently they have been living in a [address]nd [address] apartment to save money, but that it is too difficult for her becuase it is hard for her physically to manage the steps.
--- NOTE | 2025-11-05 17:55 | NUR ---
Pt got up without staff assistance to use the toilet. She removed the CPAP which she had been wearing for about 30 minutes, and did not wear her oxygen nasal cannula to go to the bathroom despite multiple reminders today to do so. At this time she is sitting up in bed, Spo2 87-91, on room air. Offered her the nasal cannula, and she said no she was going to put the CPAP back on right away when she lies down. She did not do so, but is refusing for staff to give her either her oxygen or CPAP at this time. Carlos Hi is at the bedside, talking with the patient.
--- NOTE | 2025-11-05 18:02 | NUR ---
Pt still has not applied neither he O2 NC nor the CPAP, and spo2 dropped to 83%. I entered the room to tell her that she needs to wear some form of oxygen and she spoke in a very loud angry tone, saying, "I'm getting in bed, I'm going to put it on" although video surveillance has been showing that she has been sitting up in bed, without applying her oxygen again despite reminders and offers of help from staff at this time. Pt is cursing and swearing and yelling, saying that this is why she needs a "f-- purewick" She has finally put on the CPAP and her spo2 is 91%. Kolton is at the bedside, giving pt her covers.
--- NOTE | 2025-11-05 22:04 | NUR ---
TRANSFER OF CARE @ APPPROX 2135 REPORT GIVEN BY THIS RN TO MEDICAL FLOOR STEPHANIE @ APPROX 2114. PT TRANSFERED BY BED TO MEDICAL FLOOR RM 303, PT TAKEN WITH ALL BELONGINGS. PT IS DROWSY &O X4, ABLE TO MAKE NEEDS KNOWN, MOVING ALL EXTREMITIES WITH PURPOSE, REPOSITIONING SELF IN BED. CONTINUOUS SPO2, SPO2 GREATER THAN 92% ON 5L O2 VIA NC, PT FINGERS AND FEET DEEP RED IN COLOR THAT WORSEN WHEN DEPENDENT HR 80-90 S, MURMUR HEARD, BP STABLE WITH MAP GREATER THAN 65, PULSES PRESENT T/O. BOWEL TONES PRESENT IN ALL 4Q, PT DENIES FEELINGS OF CONSTIPATION. PUREWICK IN PLACE CONNECTED TO LOW CONTINUOUS SUCTION, URINE YELLOW IN COLOR. REPORTING PAIN TO LUNGS AND FEET/ MEDICATED PER ORDERS.
--- NOTE | 2025-11-06 04:55 | NUR ---
SHIFT SUMMARY PATIENT IS ALERT AND ORIENTED. PATIENT HAS HAD NO ACUTE EVENTS THIS SHIFT. PATIENT WAS A TRANSFER FROM PCU AT 2100. PATIENT HAS COMPLAINED OF PAIN THIS SHIFT AND MEDICATED PER EMAR. PATIENT HAS HAD NO COMPLAINTS OF SOB, NAUSEA, OR VOMITTING THIS SHIFT. PATIIENT HAS TAKEN A SHOWER SINCE TRANSFER. PATIENT HAS CALL LIGHT IN PLACE. BED IN LOCKED AND LOWEST POSITION.
[2025-11-06 08:04] VITALS: BP 142/91
[2025-11-06] MEDS ORDERED: Ipratropium/Albuterol SulF 2.5-0.5MG/3 ML Amp INH SCH (12:00)
[2025-11-06 15:05] VITALS: BP 140/101
--- NOTE | 2025-11-06 17:39 | NUR ---
AMA NOTE PT LEFT AMA AT 1710. PT'S S/O YELLING PROFANITIES AND TAKING PICTURES OF THE HOSPITAL BED W/ HIS PERSONAL CELL PHONE WHILE TALKING TO AN INDIVIDUAL OVER SPEAKER PHONE. PT AND PT'S S/O EDUCATED ABOUT ACQUIRING PT'S O2 TANK AND THE IMPORTANCE OF O2 USE BY TRACEY REY. PT EDUCATED ABOUT RISK AND BENEFITS OF LEAVING AMA BY TRACEY REY. PT REFUSED TO SIGN AMA FORM. COMPUTER SCIENCE INSTRUCTOR DYANI NOTIFIED. PT ESCOURTED OUT VIA W/C BY S/O. THIS RN CALLED TO NOTIFY.
== END 2025-11-06 17:10 | disposition left against medical advice (07) | DRG 314 ==
LOC: ER 23:42 → PCU 11-02 06:12 → MEDS 11-05 21:42
PROVIDERS: Emergency Medicine; Internal Medicine; Student in an Organized Health Care Education/Training Program; ADMIT Internal Medicine
PROC: 5A09357 Assistance with Respiratory Ventilation, Less than 24 Consecutive Hours, Continuous Positive Airway Pressure (ICD-10-PCS; principal; 2025-11-02)
PROC: 3E02340 Introduction of Influenza Vaccine into Muscle, Percutaneous Approach (ICD-10-PCS; 2025-11-02)
DX: I27.29 Other secondary pulmonary hypertension (principal); I50.33 Acute on chronic diastolic (congestive) heart failure; J96.01 Acute respiratory failure with hypoxia; Z68.43 Body mass index [BMI] 50.0-59.9, adult; E87.1 Hypo-osmolality and hyponatremia; I25.10 Atherosclerotic heart disease of native coronary artery without angina pectoris; F41.9 Anxiety disorder, unspecified; F32.A Depression, unspecified; I45.10 Unspecified right bundle-branch block; R45.1 Restlessness and agitation; F43.12 Post-traumatic stress disorder, chronic; J45.909 Unspecified asthma, uncomplicated; E06.3 Autoimmune thyroiditis; I50.810 Right heart failure, unspecified; G47.33 Obstructive sleep apnea (adult) (pediatric); G47.00 Insomnia, unspecified; F15.10 Other stimulant abuse, uncomplicated; I11.0 Hypertensive heart disease with heart failure; I07.1 Rheumatic tricuspid insufficiency; E66.01 Morbid (severe) obesity due to excess calories; Z23 Encounter for immunization; Z88.0 Allergy status to penicillin; I25.2 Old myocardial infarction; Z88.8 Allergy status to other drugs, medicaments and biological substances; Z88.5 Allergy status to narcotic agent; Z79.899 Other long term (current) drug therapy; Z91.51 Personal history of suicidal behavior; Z86.79 Personal history of other diseases of the circulatory system; Z90.49 Acquired absence of other specified parts of digestive tract; Z90.89 Acquired absence of other organs; Z98.890 Other specified postprocedural states; Z87.891 Personal history of nicotine dependence; Z53.29 Procedure and treatment not carried out because of patient's decision for other reasons; Z91.198 Patient's noncompliance with other medical treatment and regimen for other reason
CPT/HCPCS: 36415; 71045; 74177; 80053; 81001; 82803; 83605; 83880; 84484; 85025; 85610; 87040; 87086; 93005; 93010; 93306; 94640; 94660; 94664; 94760; 94762; 96374; 96375; 96376; 99285-25; A9270; J1650; J1938; J2060; J2270; J2405; J3010; Q9967